=== PATIENT | female | born 1970 | race African-American/Black ===

== ENCOUNTER 2016-11-14 03:28 | Emergency (ER) | payer MEDICAID ==
[2016-11-14] MEDS ORDERED: IBUPROFEN 800 MG TABLET PO ONE (03:59)
[2016-11-14] MEDS ORDERED: DEXAMETHASONE SOD PHOSPHATE INJ 4 MG/1 ML VIAL IM ONE (03:59)
--- NOTE | 2016-11-14 04:10 | ER Document Report ---
HPI - HPI Patient complains to provider of: melecio pain Onset: Last week Onset/Duration: Persistent Severity: Severe Pain Level: 5 Context: Patient presents to the emergency department with complaints of right ankle pain , swelling. Patient reports that approximately one week ago she noted scattered knots to her bilateral lower legs. She also reports irritation to her bilateral forearms. She reports this started happening when she was using an Prim products. She reports she stopped using the product. She denies other symptoms such as fever vomiting diarrhea. She reports no other family member with these bumps. She reports they do not itch. Associated Symptoms: None Exacerbated by: Walking Relieved by: Denies Similar symptoms previously: No Recently seen / treated by doctor: No - REPRODUCTIVE Reproductive: DENIES: : Past Medical History - General Information source: Patient Last Menstrual Period: IUD - Social History Smoking Status: Unknown if Ever Smoked Cigarette use (# per day): No Frequency of alcohol use: None Drug Abuse: None Lives with: Family Family History: Reviewed & Not Pertinent - Past Medical History Cardiac Medical History: Reports: Hx Hypertension Pulmonary Medical History: Reports: Hx Asthma Neurological Medical History: Reports: Hx Migraine Musculoskeltal Medical History: Reports Hx Gout Psychiatric Medical History: Reports: Hx Depression Surgical Hx: Negative - Immunizations Immunizations up to date: Yes Hx Diphtheria, Pertussis, Tetanus Vaccination: Yes - 2004 [facility] Provider Document - CONSTITUTIONAL Agree With Documented VS: Yes Exam Limitations: No Limitations General Appearance: WD/WN, No Apparent Distress - INFECTION CONTROL TRAVEL OUTSIDE OF THE [place] IN LAST 30 DAYS: No - HEENT HEENT: Atraumatic, Normocephalic - NECK Neck: Normal Inspection, Supple. negative: Lymphadenopathy-Left, Lymphadenopathy-Right - RESPIRATORY O2 Sat by Pulse Oximetry: 100 - CARDIOVASCULAR Cardiovascular: Regular Rate - GI/ABDOMEN Gastrointestinal: Abdomen Soft, Abdomen Non-Tender - BACK Back: Normal Inspection - MUSCULOSKELETAL/EXTREMETIES Musculoskeletal/Extremeties: MAEW, FROM, Tender - RIGHT ANKLE laterally TTP with erythema to distal lateral right lower leg slightly warm to touch, good pedal pulse, good cap refill - NEURO Level of Consciousness: Awake, Alert, Appropriate Motor/Sensory: No Motor Deficit - DERM Integumentary: Warm, Dry Adult Front & Back Diagram: 1 - Bilateral erythemic scattered bumps to lower legs, no vesicles/pustules, no open wounds 2 - scattered flat darkend areas to bilateral forearms, no open wounds, no vesicles/pustules Course - Re-evaluation Re-evalutation: 11/14/16 Patient and instructed on negative x-ray plan of care to include Keflex and Benadryl. Patient was also prescribed Motrin for the pain. She verbalized understanding. She reports she'll follow-up with Dr. jhonny Luu this week. - Vital Signs Vital signs: Temp Pulse Resp BP Pulse Ox 97.9 F 76 18 144/94 H 100 11/14/16 03:40 11/14/16 03:40 11/14/16 03:40 11/14/16 03:40 11/14/16 03:40 - Diagnostic Test Radiology reviewed: Image reviewed, Reports reviewed Procedures - Immobilization Right Ankle Pre-Proc Neuro Vasc Exam: Normal Immobilizer type: Don wrap Performed by: RN Post-Proc Neuro Vasc Exam: Unchanged from pre-exam Alignment checked and good: Yes Discharge - Discharge Clinical Impression: Acute right ankle pain, scattered insect bites, elevated blood pressure Condition: Stable Disposition: HOME, SELF-CARE Instructions: Don Wrap ([facility]), Ice & Elevation ([facility]), Use of Crutches ([facility]), Cephalexin ([facility]), Use of Diphenhydramine, Steroid Medication Injection, Ibuprofen (General) ([facility]) Additional Instructions: *You have been treated for right ankle pain and swelling, multiple insect bites Monitor your blood pressure. Your blood pressure was elevated today. This may be because you were anxious, in pain or because you need medication. It is important to follow up with your primary care provider for full evaluation. *Take medication as prescribed *You have received this steroid injection *Take Benadryl as indicated *Rest ice elevate your ankle use the crutches and Don wrap for comfort the next 3 days *Monitor your skin for signs of increasing infection such as increasing pain, redness, swelling, warmth *Follow up with Dr Jhonny Luu this week *Return to ED for signs of increasing infection, worsening condition, changes, needs Prescriptions: Cephalexin Monohydrate [Keflex 500 mg Capsule] 500 mg PO QID #20 capsule Ibuprofen [Motrin 800 mg Tablet] 800 mg PO TID #30 tablet Forms: Elevated Blood Pressure Referrals: ARTEMIO LUU MD [Primary Care Provider] - Follow up in 3-5 days
[2016-11-14] MEDS ORDERED: CEPHALEXIN 500 MG CAPSULE PO ONE (05:16)
[2016-11-14] MEDS ORDERED: DIPHENHYDRAMINE HCL 25 MG CAPSULE PO ONE (05:16)
[2016-11-14 05:37] VITALS: BP 120/74
== END 2016-11-14 05:37 | disposition home or self-care (01) ==
LOC: ER 03:28
DX: T14.8 Other injury of unspecified body region (principal); M25.571 Pain in right ankle and joints of right foot; I10 Essential (primary) hypertension; W57.XXXA Bitten or stung by nonvenomous insect and other nonvenomous arthropods, initial encounter
CPT/HCPCS: 99283; 96372; 73610; J3490 ×2; J1100

== ENCOUNTER 2016-11-25 12:38 | Emergency (ER) | payer MEDICAID ==
--- NOTE | 2016-11-25 12:54 | ER Document Report ---
ED Medical Screen (RME) - General Stated Complaint: ANKLE PAIN/POSSIBLE BITE Time seen by provider: 12:48 Mode of Arrival: Ambulatory Information source: Patient Notes: 46-year-old female presents to ED for pain tin both feet and ankles for the last 2 weeks. She denies CHF. She does states she was told 3 years ago she had gout. States the swelling is getting worse. Spoke with Dr. Lama. Her treatment will be blood work urine chest x-ray and bilateral Dopplers. I have greeted and performed a rapid initial assessment of this patient. A comprehensive ED assessment and evaluation of the patient, analysis of test results and completion of medical decision making process will be conducted by an additional ED providers. TRAVEL OUTSIDE OF THE [place] IN LAST 30 DAYS: No - Related Data Allergies/Adverse Reactions: No Known Allergies Allergy (Verified 11/25/16 12:53) Past Medical History - Past Medical History Cardiac Medical History: Reports: Hx Hypertension Pulmonary Medical History: Reports: Hx Asthma Neurological Medical History: Reports: Hx Migraine Musculoskeltal Medical History: Reports Hx Gout Psychiatric Medical History: Reports: Hx Depression - Immunizations Immunizations up to date: Yes Hx Diphtheria, Pertussis, Tetanus Vaccination: Yes - 2003
[2016-11-25 13:25] LABS: ABSOLUTE EOSINOPHILS # (AUTO) 0.3 10^3/uL (0.0-0.6); ABSOLUTE LYMPHOCYTES (AUTO) 1.3 10^3/uL (0.5-4.7); ABSOLUTE MONOCYTES (AUTO) 0.5 10^3/uL (0.1-1.4); ABSOLUTE NEUT (AUTO) 6.6 10^3/uL (1.7-8.2); BASOPHILS % (AUTO) 0.4 % (0-2); EOSINOPHILS % (AUTO) 3.2 % (0-6); HEMATOCRIT 38.7 % (36.0-47.0); HEMOGLOBIN 12.7 g/dL (12.0-15.5); HGB HCT DIFFERENCE -0.6; LYMPHOCYTES % (AUTO) 15.3 % (13-45); MEAN CORPUSCULAR HEMOGLOBIN 27.1 pg (27.0-33.4); MEAN CORPUSCULAR HGB CONC 32.9 g/dL (32.0-36.0); MEAN CORPUSCULAR VOLUME 82 fl (80-97); RED CELL DISTRIBUTION WIDTH 13.8 % (11.5-14.0); SEGMENTED NEUTROPHILS % (AUTO) 75.1 % (42-78); WHITE BLOOD COUNT 8.8 10^3/uL (4.0-10.5)
[2016-11-25 13:29] LABS: APPEARANCE,URINE CLEAR; BILIRUBIN,URINE NEGATIVE (NEGATIVE); GLUCOSE, URINE NEGATIVE (NEGATIVE); KETONES,URINE NEGATIVE (NEGATIVE); LEUKOCYTE ESTERASE,URINE NEGATIVE (NEGATIVE); NITRITE,URINE NEGATIVE (NEGATIVE); PROTEIN,URINE NEGATIVE (NEGATIVE); URINE SPECIFIC GRAVITY 1.012; UROBILINOGEN,URINE NEGATIVE mg/dL (<2.0)
[2016-11-25 13:45] LABS: ALANINE AMINOTRANSFERASE 15 U/L (9-52); ALBUMIN 3.6 g/dL (3.5-5.0); ALKALINE PHOSPHATASE 72 U/L (38-126); ANION GAP 9 (5-19); ASPARTATE AMINO TRANSFERASE 18 U/L (14-36); BILIRUBIN,TOTAL 0.4 mg/dL (0.2-1.3); BLOOD UREA NITROGEN 13 mg/dL (7-20); CALCIUM 9.6 mg/dL (8.4-10.2); CARBON DIOXIDE 30 mmol/L (22-30); CHLORIDE 101 mmol/L (98-107); CREATININE RESULT 0.76 mg/dL (0.52-1.25); GLUCOSE 108 mg/dL (75-110); POTASSIUM 3.9 mmol/L (3.6-5.0); SODIUM 139.5 mmol/L (137-145); TOTAL PROTEIN 7.4 g/dL (6.3-8.2)
--- NOTE | 2016-11-25 16:03 | ER Document Report ---
ED General - General Chief Complaint: Foot Pain Stated Complaint: ANKLE PAIN/POSSIBLE BITE Mode of Arrival: Ambulatory TRAVEL OUTSIDE OF THE [place] IN LAST 30 DAYS: No - HPI Patient complains to provider of: bilateral ankle swelling Notes: Patient states bilateral ankle swelling ongoing for the last 3-4 days. Patient denies any acute injury. Patient states she does have a history gout but is unaware if this still similar to her gout attacks in the back. Patient has swelling bilateral ankles right greater than left. No injury. No fevers no chills no nausea no vomiting. - Related Data Allergies/Adverse Reactions: No Known Allergies Allergy (Verified 11/25/16 12:53) Past Medical History - General Information source: Patient - Social History Smoking Status: Never Smoker Chew tobacco use (# tins/day): No Frequency of alcohol use: None Drug Abuse: None Family History: Reviewed & Not Pertinent Patient has suicidal ideation: No Patient has homicidal ideation: No - Past Medical History Cardiac Medical History: Reports: Hx Hypertension Pulmonary Medical History: Reports: Hx Asthma Neurological Medical History: Reports: Hx Migraine Renal/ Medical History: Denies: Hx Peritoneal Dialysis Musculoskeltal Medical History: Reports Hx Gout Psychiatric Medical History: Reports: Hx Depression - Immunizations Immunizations up to date: Yes Hx Diphtheria, Pertussis, Tetanus Vaccination: Yes - 2003 Review of Systems - Review of Systems Constitutional: No symptoms reported EENT: No symptoms reported Cardiovascular: No symptoms reported Respiratory: No symptoms reported Gastrointestinal: No symptoms reported Genitourinary: No symptoms reported Female Genitourinary: No symptoms reported Musculoskeletal: Other - Bilateral ankle swelling Skin: No symptoms reported Hematologic/Lymphatic: No symptoms reported Neurological/Psychological: No symptoms reported -: Yes All other systems reviewed and negative Physical Exam - Vital signs Vitals: Temp Pulse Resp BP Pulse Ox 98.1 F 80 24 H 158/86 H 98 11/25/16 12:49 11/25/16 12:49 11/25/16 12:49 11/25/16 12:49 11/25/16 12:49 Interpretation: Normal - General General appearance: Appears well, Alert - HEENT Head: Normocephalic, Atraumatic Eyes: Normal Pupils: PERRL - Respiratory Respiratory status: No respiratory distress Chest status: Nontender Breath sounds: Normal Chest palpation: Normal - Cardiovascular Rhythm: Regular Heart sounds: Normal auscultation Murmur: No - Abdominal Inspection: Normal Distension: No distension Bowel sounds: Normal Tenderness: Nontender Organomegaly: No organomegaly - Back Back: Normal, Nontender - Extremities General upper extremity: Normal inspection, Nontender, Normal color, Normal ROM , Normal temperature General lower extremity: Normal inspection, Nontender, Edema - Bilateral ankle swelling 2+ edema right 1+ edema on the left. There is a mild erythema on the right malleolus minimal tenderness to palpation range of motion intact, Normal color, Normal ROM, Normal temperature, Normal weight bearing. No: Lisette's sign - Neurological Neuro grossly intact: Yes Cognition: Normal Orientation: AAOx4 Kristofer Coma Scale Eye Opening: Spontaneous [place] Coma Scale Verbal: Oriented [place] Coma Scale Motor: Obeys Commands [place] Coma Scale Total: 15 Speech: Normal Motor strength normal: LUE, RUE, LLE, RLE Sensory: Normal - Psychological Associated symptoms: Normal affect, Normal mood - Skin Skin Temperature: Warm Skin Moisture: Dry Skin Color: Normal Course - Re-evaluation Re-evalutation: 11/25/16 22:29 Dopplers negative for DVT. Labwork shows no critical etiology. Possible gout. Explained to the patient that she should elevate her legs might will start treating her with anti-inflammatories. Patient's follow-up with her primary care physician. Patient agrees with plan discharged home. - Vital Signs Vital signs: Temp Pulse Resp BP Pulse Ox 98.1 F 82 16 148/76 H 98 11/25/16 16:00 11/25/16 16:00 11/25/16 16:00 11/25/16 16:00 11/25/16 16:00 - Laboratory Result Diagrams: 11/25/16 13:05 11/25/16 13:05 Laboratory results interpreted by me: 11/25/16 13:05 Urine Blood SMALL H Discharge - Discharge Clinical Impression: Pain and swelling of right ankle, Dependent edema Condition: Good Disposition: HOME, SELF-CARE Instructions: Ice & Elevation ([facility]), Gout Diet ([facility]), Gout ([facility]), Dependent Edema ([facility]) Additional Instructions: Your lab work shows no critical etiology. Your venous Doppler was negative for DVT. Laboratories negative for any signs of CHF or heart failure. More likely the swelling and pain your ankles and legs are due to possible gout or just dependent edema which is just fluid pull down by gravity and resting in your legs. We will treat your possible gout with pain medication prescribed. We will need to treat the swelling with elevation at home you may also place ice on your ankles are on her legs. Please elevate your legs above the level of your heart while lying Flat at night. We will also prescribe you some compression stockings. I would highly recommend following up with your DrNancy in one week. Prescriptions: Compression Socks, Medium [Futuro Restoring] 1 each MC DAILY #1 each Naproxen [Naprosyn 250 mg Tablet] 250 mg PO DAILY PRN #10 tablet PRN Reason: Forms: Return to Work Referrals: XOCHILT KELLY, [Primary Care Provider] - Follow up as needed
[2016-11-25 16:27] VITALS: BP 148/76
== END 2016-11-25 16:10 | disposition home or self-care (01) ==
LOC: ER 12:38
DX: R60.0 Localized edema (principal); M79.89 Other specified soft tissue disorders; M79.673 Pain in unspecified foot
CPT/HCPCS: 36415; 71020; 80053; 81001; 85025; 93970; 99283

== ENCOUNTER 2017-01-31 07:36 | Emergency (ER) | payer MEDICAID ==
[2017-01-31] MEDS ORDERED: ASPIRIN 81 MG TABLET, CHEWABLE PO ONE (07:44)
--- NOTE | 2017-01-31 08:30 | ER Document Report ---
ED Cardiac - General Chief Complaint: Chest Pain Stated Complaint: CHEST PAIN Time seen by provider: 08:30 Mode of Arrival: Ambulatory Information source: Patient Notes: 46 yo non smoke, non etoh,non drugs, hypertensive non hyperlipedemic, non dm, ashtma, (no meds for 3 years), female woke up screaming , scared, to make sure she was alive, woke up with sharp anterior retrosternal left sided chest pain , lasted 10-15 minutes, at 0400, was at [employer] until 0200. Drove to hospital, fell asleep in the car, did not check into the ER until she woke up pain was gone. When walking into the ER the pain returned, same location, not as sharp, lasted 10-15 minutes. 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 PCP Artemio Helms fam hx-Mom [place] in 50's. Tried albuterol MDI at home which helped some. NO fever. Insp and exp. wheeze bilateral. Wheezing for a few days, she does get chest pain from asthma, but today she thinks it is her heart, not her lungs. Ran out of Dine in last week. Swelling in lower legs since december which is new. No cardiac work up in the past. No hx of dvt or pe. TRAVEL OUTSIDE OF THE [place] IN LAST 30 DAYS: No - Related Data Allergies/Adverse Reactions: No Known Allergies Allergy (Verified 01/31/17 07:50) Past Medical History - General Information source: Patient - Social History Smoking Status: Never Smoker Chew tobacco use (# tins/day): No Frequency of alcohol use: None Drug Abuse: None Occupation: self-employed Family History: Reviewed & Not Pertinent Patient has suicidal ideation: No Patient has homicidal ideation: No - Past Medical History Cardiac Medical History: Reports: Hx Hypertension Pulmonary Medical History: Reports: Hx Asthma Neurological Medical History: Reports: Hx Migraine Renal/ Medical History: Denies: Hx Peritoneal Dialysis Musculoskeltal Medical History: Reports Hx Gout Psychiatric Medical History: Reports: Hx Depression Surgical Hx: Negative - Immunizations Immunizations up to date: Yes Hx Diphtheria, Pertussis, Tetanus Vaccination: Yes - 2003 Review of Systems - Review of Systems Constitutional: No symptoms reported EENT: No symptoms reported Cardiovascular: See HPI Respiratory: See HPI Gastrointestinal: No symptoms reported Genitourinary: No symptoms reported Female Genitourinary: No symptoms reported Musculoskeletal: No symptoms reported Skin: No symptoms reported Hematologic/Lymphatic: No symptoms reported Neurological/Psychological: No symptoms reported Physical Exam - Vital signs Vitals: Temp Pulse Resp BP Pulse Ox 98.4 F 73 20 151/99 H 99 01/31/17 07:53 01/31/17 07:53 01/31/17 07:53 01/31/17 07:53 01/31/17 07:53 Interpretation: Normal - General General appearance: Appears well, Alert In distress: None - HEENT Head: Normocephalic, Atraumatic Eyes: Normal Conjunctiva: Normal Pupils: PERRL Tympanic membrane: Normal Mouth/Lips: Normal Mucous membranes: Normal Pharynx: Normal Neck: Supple. No: Lymphadenopathy, Thyromegally - Respiratory Respiratory status: No respiratory distress Chest status: Nontender Breath sounds: Wheezing - Inspiratory and expiratory bilateral. No: Rales, Rhonchi Chest palpation: Normal - Cardiovascular Rhythm: Regular Heart sounds: Normal auscultation Murmur: No - Abdominal Inspection: Normal Distension: No distension Bowel sounds: Normal Tenderness: Nontender. No: Tender Organomegaly: No organomegaly - Back Back: Normal, Nontender. No: CVA tenderness - Extremities General upper extremity: Normal inspection, Nontender, Normal color, Normal ROM , Normal temperature General lower extremity: Normal inspection, Nontender, Normal color, Normal ROM , Normal temperature, Normal weight bearing. No: Lisette's sign - Neurological Neuro grossly intact: Yes Cognition: Normal Orientation: AAOx4 Kristofer Coma Scale Eye Opening: Spontaneous [place] Coma Scale Verbal: Oriented Kristofer Coma Scale Motor: Obeys Commands [place] Coma Scale Total: 15 Speech: Normal Motor strength normal: LUE, RUE, LLE, RLE Sensory: Normal - Psychological Associated symptoms: Normal affect, Normal mood - Skin Skin Temperature: Warm Skin Moisture: Dry Skin Color: Normal Skin irregularity: negative: Rash Course - Re-evaluation Re-evalutation: 01/31/17 11:02 Lungs are clear. Patient states that the chest pain that she was feeling went away with a breathing treatment. Labs are negative. Test x-ray is negative. ekg NSR no ectopy of ischemic changes. consult dr. huitron, if the 2nd troponin is negative. pt can go home with cardiology referral 01/31/17 12:53 awoke pt. lungs clear. no chest pain. considered PE,CHF, ACS in differential and feel that this is asthma, as the pt admits after the tx that the pain resolved with the nebulizer, and that she also believes that this was due to the wheezing she has been doing all this week. - Vital Signs Vital signs: Temp Pulse Resp BP Pulse Ox 98.7 F 64 18 146/81 H 99 01/31/17 14:40 01/31/17 14:40 01/31/17 14:40 01/31/17 14:40 01/31/17 14:40 - Laboratory Result Diagrams: 01/31/17 08:45 01/31/17 08:45 Laboratory results interpreted by me: 01/31/17 01/31/17 08:45 08:45 Hgb 11.9 L MCH 26.2 L RDW 14.1 H Creatine Kinase 214 H Discharge - Discharge Clinical Impression: Wheezing Chest pain Qualifiers: Chest pain type: unspecified Qualified Code(s): R07.9 - Chest pain, unspecified Asthma Qualifiers: Asthma severity: mild intermittent Asthma complication type: uncomplicated Qualified Code(s): J45.20 - Mild intermittent asthma, uncomplicated Condition: Good Disposition: HOME, SELF-CARE Instructions: Chest Pain of Unclear Cause ([facility]), Asthma ([facility]), Steroid Medication, Inhaled Bronchodilators ([facility]), Aspirin (Cardiac) ([facility]) Additional Instructions: call for cardiology evaluation tomorrow. dr. john will see you this week to er if worse refill on the advair and albuterol MDI's that are empty. Please complete the patient satisfaction survey if you get one, and return it.. If you do not receive a survey, then you can go to the [facility] website, [email or web address] and place your comments about your very good care. Thank you very much. It was a pleasure being your medical provider today. Prescriptions: Albuterol Sulfate [Proair HFA Inhalation Aerosol 8.5 gm MDI] 2 puff IH Q3HP PRN #1 [email or web address] PRN Reason: Fluticasone/Salmeterol [Advair HFA 115-21 mcg Inhaler] 2 puff IH DAILY #1 mdi Prednisone [Deltasone 20 mg Tablet] 40 mg PO DAILY #8 tablet Referrals: LASHELL JOHN MD [ACTIVE STAFF] - Follow up tomorrow ARTEMIO HELMS MD [Primary Care Provider] - Follow up in 3-5 days
[2017-01-31] MEDS ORDERED: IPRATROPIUM/ALBUTEROL 0.5-2.5 MG/3 ML AMPUL NEB ONE (08:55)
[2017-01-31 09:23] LABS: ABSOLUTE EOSINOPHILS # (AUTO) 0.6 10^3/uL (0.0-0.6); ABSOLUTE LYMPHOCYTES (AUTO) 1.9 10^3/uL (0.5-4.7); ABSOLUTE MONOCYTES (AUTO) 0.7 10^3/uL (0.1-1.4); ABSOLUTE NEUT (AUTO) 6.2 10^3/uL (1.7-8.2); BASOPHILS % (AUTO) 0.4 % (0-2); EOSINOPHILS % (AUTO) 5.9 % (0-6); HEMATOCRIT 36.3 % (36.0-47.0); HEMOGLOBIN 11.9 g/dL (12.0-15.5); HGB HCT DIFFERENCE -0.6; LYMPHOCYTES % (AUTO) 20.6 % (13-45); MEAN CORPUSCULAR HEMOGLOBIN 26.2 pg (27.0-33.4); MEAN CORPUSCULAR HGB CONC 32.7 g/dL (32.0-36.0); MEAN CORPUSCULAR VOLUME 80 fl (80-97); MONOCYTES % (AUTO) 7.9 % (3-13); RED BLOOD COUNT 4.53 10^6/uL (3.72-5.28); RED CELL DISTRIBUTION WIDTH 14.1 % (11.5-14.0); SEGMENTED NEUTROPHILS % (AUTO) 65.2 % (42-78); WHITE BLOOD COUNT 9.4 10^3/uL (4.0-10.5)
--- NOTE | 2017-01-31 09:36 | EKG REPORT ---
SEVERITY:- ABNORMAL ECG - SINUS RHYTHM LEFT VENTRICULAR HYPERTROPHY : Confirmed by: Naila Gloria 31-Jan-2017 09:35:44
[2017-01-31 09:43] LABS: ALANINE AMINOTRANSFERASE 25 U/L (9-52); ALBUMIN 3.8 g/dL (3.5-5.0); ALKALINE PHOSPHATASE 79 U/L (38-126); ANION GAP 8 (5-19); ASPARTATE AMINO TRANSFERASE 20 U/L (14-36); BILIRUBIN,DIRECT 0.2 mg/dL (0.0-0.4); BILIRUBIN,TOTAL 0.3 mg/dL (0.2-1.3); BLOOD UREA NITROGEN 14 mg/dL (7-20); CALCIUM 9.5 mg/dL (8.4-10.2); CARBON DIOXIDE 29 mmol/L (22-30); CHLORIDE 104 mmol/L (98-107); CREATINE KINASE 214 U/L (30-135); CREATININE RESULT 0.74 mg/dL (0.52-1.25); GLUCOSE 96 mg/dL (75-110); POTASSIUM 3.8 mmol/L (3.6-5.0); SODIUM 141.1 mmol/L (137-145); TOTAL PROTEIN 7.6 g/dL (6.3-8.2)
[2017-01-31 09:54] LABS: CREATINE KINASE MB 0.82 ng/mL (<4.55)
[2017-01-31 09:55] LABS: TROPONIN I < 0.012 ng/mL
[2017-01-31] MEDS ORDERED: PREDNISONE 20 MG TABLET PO ONE (12:56)
[2017-01-31 14:43] VITALS: BP 146/81
== END 2017-01-31 14:43 | disposition home or self-care (01) ==
LOC: ER 07:36
DX: J45.20 Mild intermittent asthma, uncomplicated (principal); R07.9 Chest pain, unspecified; R06.2 Wheezing; M79.89 Other specified soft tissue disorders
CPT/HCPCS: 93005; 94640; 99285; 36415; 82553; 82550; 85025; 80053; 84484; 83880; 71010; 93010; J7620

== ENCOUNTER 2017-10-01 04:14 | Emergency (ER) | payer MEDICAID ==
--- NOTE | 2017-10-01 04:41 | ER Document Report ---
ED GI/ - General Chief Complaint: Abdominal Pain Stated Complaint: ABDOMINAL PAIN Time Seen by Provider: 10/01/17 04:41 Mode of Arrival: Ambulatory Information source: Patient Notes: 47-year-old female complaining of upper midline crampy intermittent abdominal pain since she ate turkey and gravy at 7 PM. She thinks she might have food poisoning. Normal bowel movement today. No diarrhea. No fever or chills. No flank pain. No urinary frequency dysuria or urgency. No history of abdominal surgeries. TRAVEL OUTSIDE OF THE [place] IN LAST 30 DAYS: No - Related Data Allergies/Adverse Reactions: No Known Allergies Allergy (Verified 01/31/17 07:50) Past Medical History - General Information source: Patient - Social History Smoking Status: Current Every Day Smoker Frequency of alcohol use: None Drug Abuse: None Lives with: Family Family History: Reviewed & Not Pertinent - Past Medical History Cardiac Medical History: Reports: Hx Hypertension Pulmonary Medical History: Reports: Hx Asthma Neurological Medical History: Reports: Hx Migraine Renal/ Medical History: Denies: Hx Peritoneal Dialysis Musculoskeltal Medical History: Reports Hx Gout Psychiatric Medical History: Reports: Hx Depression Surgical Hx: Negative - Immunizations Immunizations up to date: Yes Hx Diphtheria, Pertussis, Tetanus Vaccination: Yes - 2003 Review of Systems - Review of Systems Constitutional: No symptoms reported EENT: No symptoms reported Cardiovascular: No symptoms reported Respiratory: No symptoms reported Gastrointestinal: See HPI Genitourinary: No symptoms reported Female Genitourinary: No symptoms reported Musculoskeletal: No symptoms reported Skin: No symptoms reported Hematologic/Lymphatic: No symptoms reported Neurological/Psychological: No symptoms reported Physical Exam - Vital signs Vitals: Temp Pulse Resp BP Pulse Ox 98.1 F 77 18 158/92 H 98 10/01/17 04:23 10/01/17 04:23 10/01/17 04:23 10/01/17 04:23 10/01/17 04:23 Interpretation: Normal - General General appearance: Appears well, Alert, Unresponsive - HEENT Head: Normocephalic, Atraumatic Eyes: Normal Pupils: PERRL Mucous membranes: Normal Pharynx: Normal Neck: Supple. No: Lymphadenopathy - Respiratory Respiratory status: No respiratory distress Chest status: Nontender Breath sounds: Normal Chest palpation: Normal - Cardiovascular Rhythm: Regular Heart sounds: Normal auscultation Murmur: No - Abdominal Inspection: Normal Distension: No distension Bowel sounds: Normal Tenderness: Nontender. No: Tender Organomegaly: No organomegaly. No: Hepatomegaly, Splenomegaly - Back Back: Normal, Nontender. No: CVA tenderness - Extremities General upper extremity: Normal inspection, Nontender, Normal color, Normal ROM , Normal temperature General lower extremity: Normal inspection, Nontender, Normal color, Normal ROM , Normal temperature, Normal weight bearing. No: Lisette's sign - Neurological Neuro grossly intact: Yes Cognition: Normal Orientation: AAOx4 Kristofer Coma Scale Eye Opening: Spontaneous [place] Coma Scale Verbal: Oriented Kristofer Coma Scale Motor: Obeys Commands [place] Coma Scale Total: 15 Speech: Normal Motor strength normal: LUE, RUE, LLE, RLE Sensory: Normal - Psychological Associated symptoms: Normal affect, Normal mood - Skin Skin Temperature: Warm Skin Moisture: Dry Skin Color: Normal Skin irregularity: negative: Rash Course - Re-evaluation Re-evalutation: 10/01/17 05:31 labs normal, pt was asleep, awoken and explained that we will treat her with GI cocktail and prevacid, will be discharged home. 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 If you do not receive a survey, then you can go to the [facility] website, [email or web address] and place your comments about your very good care. Thank you very much. It was a pleasure being your medical provider today. Referrals: DENI PONCE MD [ACTIVE STAFF] - Follow up as needed
[2017-10-01 04:55] LABS: ABSOLUTE BASOPHILS # (AUTO) 0.1 10^3/uL (0.0-0.2); ABSOLUTE EOSINOPHILS # (AUTO) 0.3 10^3/uL (0.0-0.6); ABSOLUTE LYMPHOCYTES (AUTO) 1.4 10^3/uL (0.5-4.7); ABSOLUTE MONOCYTES (AUTO) 0.4 10^3/uL (0.1-1.4); ABSOLUTE NEUT (AUTO) 8.2 10^3/uL (1.7-8.2); BASOPHILS % (AUTO) 0.7 % (0-2); EOSINOPHILS % (AUTO) 2.8 % (0-6); HEMATOCRIT 42.1 % (36.0-47.0); HEMOGLOBIN 14.3 g/dL (12.0-15.5); HGB HCT DIFFERENCE 0.8; LYMPHOCYTES % (AUTO) 13.9 % (13-45); MEAN CORPUSCULAR HEMOGLOBIN 27.7 pg (27.0-33.4); MEAN CORPUSCULAR HGB CONC 34.1 g/dL (32.0-36.0); MEAN CORPUSCULAR VOLUME 81 fl (80-97); MONOCYTES % (AUTO) 4.1 % (3-13); RED BLOOD COUNT 5.17 10^6/uL (3.72-5.28); RED CELL DISTRIBUTION WIDTH 13.7 % (11.5-14.0); SEGMENTED NEUTROPHILS % (AUTO) 78.5 % (42-78); WHITE BLOOD COUNT 10.4 10^3/uL (4.0-10.5)
[2017-10-01 05:08] LABS: APPEARANCE,URINE CLEAR; BILIRUBIN,URINE NEGATIVE (NEGATIVE); GLUCOSE, URINE NEGATIVE (NEGATIVE); KETONES,URINE NEGATIVE (NEGATIVE); LEUKOCYTE ESTERASE,URINE TRACE (NEGATIVE); NITRITE,URINE NEGATIVE (NEGATIVE); PROTEIN,URINE NEGATIVE (NEGATIVE); UROBILINOGEN,URINE NEGATIVE mg/dL (<2.0)
[2017-10-01 05:13] LABS: ALANINE AMINOTRANSFERASE 30 U/L (9-52); ALBUMIN 4.4 g/dL (3.5-5.0); ALKALINE PHOSPHATASE 75 U/L (38-126); ANION GAP 13 (5-19); ASPARTATE AMINO TRANSFERASE 20 U/L (14-36); BILIRUBIN,DIRECT 0.2 mg/dL (0.0-0.4); BILIRUBIN,TOTAL 0.3 mg/dL (0.2-1.3); BLOOD UREA NITROGEN 11 mg/dL (7-20); CALCIUM 9.5 mg/dL (8.4-10.2); CARBON DIOXIDE 26 mmol/L (22-30); CHLORIDE 102 mmol/L (98-107); GLUCOSE 103 mg/dL (75-110); LIPASE 72.5 U/L (23-300); SODIUM 141.2 mmol/L (137-145); TOTAL PROTEIN 7.8 g/dL (6.3-8.2)
[2017-10-01] MEDS ORDERED: LANSOPRAZOLE 30 MG TAB.RAP.DR PO ONE (05:27)
[2017-10-01] MEDS ORDERED: LIDOCAINE 2% VISCOUS SOLN 20 ML UDCUP PO ONE (05:27)
[2017-10-01] MEDS ORDERED: MAG HYDROX/AL HYDROX/SIMETH SUSP 30 ML UDCUP PO ONE (05:27)
[2017-10-01 06:36] VITALS: BP 142/78
== END 2017-10-01 06:40 | disposition home or self-care (01) ==
LOC: ER 04:14
DX: R10.10 Upper abdominal pain, unspecified (principal); F17.200 Nicotine dependence, unspecified, uncomplicated; I10 Essential (primary) hypertension
CPT/HCPCS: 36415; 80053; 81001; 83690; 84703; 85025; 99284; J3490

== ENCOUNTER 2017-10-29 07:41 | Emergency (ER) | payer MEDICAID ==
[2017-10-29 07:47] VITALS: BP 151/86
--- NOTE | 2017-10-29 09:53 | ER Document Report ---
HPI - HPI Patient complains to provider of: cough, wheeze Onset: Yesterday Onset/Duration: Gradual Pain Level: 3 Context: 47 yo female with hx asthma c/o slight wheeze and cough since yesterday; No fever or chest pain. Associated Symptoms: None Exacerbated by: Denies Relieved by: Denies Similar symptoms previously: Yes Recently seen / treated by doctor: No - ROS ROS below otherwise negative: Yes Systems Reviewed and Negative: Yes All other systems reviewed and negative - RESPIRATORY Respiratory: REPORTS: Trouble Breathing - no sob today, Coughing - md not called in advair script - REPRODUCTIVE Reproductive: DENIES: : Past Medical History - General Information source: Patient - Social History Smoking Status: Never Smoker Chew tobacco use (# tins/day): No Frequency of alcohol use: None Drug Abuse: None Lives with: Family Family History: Reviewed & Not Pertinent Patient has suicidal ideation: No Patient has homicidal ideation: No - Past Medical History Cardiac Medical History: Reports: Hx Hypertension Pulmonary Medical History: Reports: Hx Asthma Neurological Medical History: Reports: Hx Migraine Renal/ Medical History: Denies: Hx Peritoneal Dialysis Musculoskeltal Medical History: Reports Hx Gout Psychiatric Medical History: Reports: Hx Depression - Immunizations Immunizations up to date: Yes Hx Diphtheria, Pertussis, Tetanus Vaccination: Yes - 2003 Vertical Provider Document - CONSTITUTIONAL Agree With Documented VS: Yes Exam Limitations: No Limitations General Appearance: No Apparent Distress - INFECTION CONTROL TRAVEL OUTSIDE OF THE [place] IN LAST 30 DAYS: No - HEENT HEENT: Normocephalic, Pharyngeal Erythema. negative: Conjuctival Injection, Tympanic Membrane Red - NECK Neck: Supple. negative: Lymphadenopathy-Left, Lymphadenopathy-Right - RESPIRATORY Respiratory: Breath Sounds Normal, No Respiratory Distress O2 Sat by Pulse Oximetry: 96 - CARDIOVASCULAR Cardiovascular: Regular Rate, Regular Rhythm - GI/ABDOMEN Gastrointestinal: Abdomen Soft, Abdomen Non-Tender, No Organomegaly, Normal Bowel Sounds - MUSCULOSKELETAL/EXTREMETIES Musculoskeletal/Extremeties: ABDELRAHMAN FONTAINE - NEURO Level of Consciousness: Awake, Alert, Appropriate Motor/Sensory: No Motor Deficit, No Sensory Deficit - DERM Integumentary: Warm, Dry Course - Vital Signs Vital signs: Temp Pulse Resp BP Pulse Ox 98.3 F 81 20 151/86 H 96 10/29/17 07:46 10/29/17 07:46 10/29/17 07:46 10/29/17 07:46 10/29/17 07:46 Discharge - Discharge Clinical Impression: mild wheezing Asthma Qualifiers: Asthma severity: unspecified severity Asthma persistence: persistent Asthma complication type: uncomplicated Qualified Code(s): J45.909 - Unspecified asthma , uncomplicated Condition: Good Disposition: HOME, SELF-CARE Instructions: Asthma ([facility]), Inhaled Bronchodilators ([facility]), Steroid Medication Additional Instructions: advair and albuterol MDI prescribed start today to er if any shortness of breath, increased wheezing, fever. see dr. helms for follow up Prescriptions: Albuterol Sulfate [Proair HFA Inhalation Aerosol 8.5 gm MDI] 2 puff IH Q3HP PRN #1 hfa.aer.ad PRN Reason: Fluticasone/Salmeterol [Advair 250-50 Diskus 28 dose] 1 inh IH DAILY #1 inhaler Referrals: ARTEMIO HELMS MD [Primary Care Provider] - 10/31/17
[2017-10-29] MEDS ORDERED: IPRATROPIUM/ALBUTEROL 0.5-2.5 MG/3 ML AMPUL NEB ONE (09:59)
[2017-10-29] MEDS ORDERED: PREDNISONE 20 MG TABLET PO ONE (10:00)
== END 2017-10-29 10:28 | disposition home or self-care (01) ==
LOC: ER 07:41
DX: J45.909 Unspecified asthma, uncomplicated (principal); R05 Cough
CPT/HCPCS: 94640; 99284; J7512; J7620

== ENCOUNTER 2018-02-13 17:45 | Emergency (ER) | payer MEDICAID ==
[2018-02-13] MEDS ORDERED: IPRATROPIUM/ALBUTEROL 0.5-2.5 MG/3 ML AMPUL NEB ONE ×2 (18:29→19:43)
[2018-02-13] MEDS ORDERED: PREDNISONE 20 MG TABLET PO ONE (18:50)
--- NOTE | 2018-02-13 19:37 | RADIOLOGY REPORT (SQ) ---
EXAM DESCRIPTION: CHEST 2 VIEWS COMPLETED DATE/TIME: 02/13/2018 7:16 pm REASON FOR STUDY: sob COMPARISON: 11/25/2016. EXAM PARAMETERS: NUMBER OF VIEWS: two views TECHNIQUE: Digital Frontal and Lateral radiographic views of the chest acquired. RADIATION DOSE: NA LIMITATIONS: none FINDINGS: LUNGS AND PLEURA: No opacities, masses or pneumothorax. No pleural effusion. MEDIASTINUM AND HILAR STRUCTURES: No masses or contour abnormalities. HEART AND VASCULAR STRUCTURES: Heart normal size. No evidence for failure. BONES: No acute findings. HARDWARE: None in the chest. OTHER: No other significant finding. IMPRESSION: NO ACUTE RADIOGRAPHIC FINDING IN THE CHEST. TECHNICAL DOCUMENTATION: JOB ID: [id number] [employer]- All Rights Reserved Reading location - IP/workstation name: [email or web address]
[2018-02-13] MEDS ORDERED: ALBUTEROL SULFATE HFA (90 MCG/PUFF) 8 GM MDI (1 MDI/ER DISP) IH ONE (20:18)
--- NOTE | 2018-02-13 20:21 | ER Document Report ---
ED General - General Chief Complaint: Shortness Of Breath Stated Complaint: WHEEZING Time Seen by Provider: 02/13/18 18:27 TRAVEL OUTSIDE OF THE [place] IN LAST 30 DAYS: No - HPI Patient complains to provider of: Wheezing Notes: Patient coming in for wheezing shortness of breath. States ongoing for the last few days. Patient is a history of asthma. Patient denies any ICU admissions or intubations. Patient denies any recent antibiotics patient states she is using her child's inhaler and her child's nebulizer at home. Otherwise patient talking in normal voice no signs of any obvious distress upon my evaluation. Denies fever chills nausea vomiting diarrhea - Related Data Allergies/Adverse Reactions: No Known Allergies Allergy (Verified 02/13/18 17:47) Past Medical History - Social History Smoking Status: Never Smoker Chew tobacco use (# tins/day): No Frequency of alcohol use: None Drug Abuse: None Family History: Reviewed & Not Pertinent Patient has suicidal ideation: No Patient has homicidal ideation: No - Past Medical History Cardiac Medical History: Reports: Hx Hypertension Pulmonary Medical History: Reports: Hx Asthma Neurological Medical History: Reports: Hx Migraine Renal/ Medical History: Denies: Hx Peritoneal Dialysis Musculoskeltal Medical History: Reports Hx Gout Psychiatric Medical History: Reports: Hx Depression - Immunizations Immunizations up to date: Yes Hx Diphtheria, Pertussis, Tetanus Vaccination: Yes - 2003 Review of Systems - Review of Systems Constitutional: No symptoms reported EENT: No symptoms reported Cardiovascular: No symptoms reported Respiratory: Short of breath, Wheezing Gastrointestinal: No symptoms reported Genitourinary: No symptoms reported Female Genitourinary: No symptoms reported Musculoskeletal: No symptoms reported Skin: No symptoms reported Hematologic/Lymphatic: No symptoms reported Neurological/Psychological: No symptoms reported -: Yes All other systems reviewed and negative Physical Exam - Vital signs Vitals: Temp Pulse Resp BP Pulse Ox 98.1 F 87 20 158/96 H 98 02/13/18 17:50 02/13/18 17:50 02/13/18 17:50 02/13/18 17:50 02/13/18 17:50 Interpretation: Normal - General General appearance: Appears well, Alert - HEENT Head: Normocephalic, Atraumatic Eyes: Normal Pupils: PERRL - Respiratory Respiratory status: No respiratory distress Chest status: Nontender Breath sounds: Wheezing Chest palpation: Normal - Cardiovascular Rhythm: Regular Heart sounds: Normal auscultation Murmur: No - Abdominal Inspection: Normal Distension: No distension Bowel sounds: Normal Tenderness: Nontender Organomegaly: No organomegaly - Back Back: Normal, Nontender - Extremities General upper extremity: Normal inspection, Nontender, Normal color, Normal ROM , Normal temperature General lower extremity: Normal inspection, Nontender, Normal color, Normal ROM , Normal temperature, Normal weight bearing. No: Lisette's sign - Neurological Neuro grossly intact: Yes Cognition: Normal Orientation: AAOx4 Kristofer Coma Scale Eye Opening: Spontaneous [place] Coma Scale Verbal: Oriented Kristofer Coma Scale Motor: Obeys Commands [place] Coma Scale Total: 15 Speech: Normal Motor strength normal: LUE, RUE, LLE, RLE Sensory: Normal - Psychological Associated symptoms: Normal affect, Normal mood - Skin Skin Temperature: Warm Skin Moisture: Dry Skin Color: Normal Course - Re-evaluation Re-evalutation: 02/13/18 22:54 After nebulized treatment patient found sleeping no signs of any distress chest x-ray does not show any signs of pneumonia. Patient will be discharged home bronchodilator therapy and steroids. Patient states understanding to follow-up with her PCP - Vital Signs Vital signs: Temp Pulse Resp BP Pulse Ox 98.1 F 81 19 141/81 H 100 02/13/18 17:50 02/13/18 20:44 02/13/18 20:44 02/13/18 20:44 02/13/18 20:44 Discharge - Discharge Clinical Impression: Wheezing Condition: Good Disposition: HOME, SELF-CARE Instructions: Asthma ([facility]) Additional Instructions: Your chest x-ray is negative for any signs of acute infection such as pneumonia. Do believe you have a slight asthma exacerbation. Please use the inhaler or the nebulizers as directed. Please take his steroids as directed return to ER symptoms worsen. Prescriptions: Albuterol Sulfate [Albuterol Sulfate 2.5mg/3 mL] 1 vial IH Q4 PRN #30 vial PRN Reason: Fluticasone/Salmeterol [Advair 250-50 Diskus 28 dose] 1 inh IH DAILY #1 inhaler Ipratropium [place] [Atrovent 0.02% Neb 0.5 Mg/2.5 Ml Vial.Neb] 0.5 mg IH Q12 # 30 vial.neb Prednisone [Deltasone 20 mg Tablet] 60 mg PO DAILY #15 tablet Referrals: ARTEMIO HELMS MD [Primary Care Provider] - Follow up as needed
[2018-02-13 20:46] VITALS: BP 141/81
== END 2018-02-13 20:44 | disposition home or self-care (01) ==
LOC: ER 17:45
DX: R06.2 Wheezing (principal); R06.02 Shortness of breath; I10 Essential (primary) hypertension
CPT/HCPCS: 94640 ×2; 99285; 71046; J7512; J3490; J7620

== ENCOUNTER 2018-04-16 04:55 | Emergency (ER) | payer MEDICAID ==
[2018-04-16] MEDS ORDERED: DIPH/PERTUSS(ACELL)/TETANUS VAC/PF 0.5 ML SYR (>=10YO) IM ONE (04:57)
--- NOTE | 2018-04-16 06:29 | ER Document Report ---
ED Extremity Problem, Lower - General Mode of Arrival: Ambulatory Information source: Patient TRAVEL OUTSIDE OF THE [place] IN LAST 30 DAYS: No - General Chief Complaint: Foot Pain Stated Complaint: FOOT INJURY Time Seen by Provider: 04/16/18 06:04 Notes: Patient is a 47 year old female with asthma, HTN, depression and a history of gout and migraines presents to the emergency department complaining of right heel pain onset 2 days ago. Patient states she was in her back yard when she stepped on a ita nail. Patient states her pain is exacerbated with walking on the right foot. Patient states her last tetanus shot was in 2003. Patient is currently on her menstrual cycle and has a 10 year IUD. (LASHAWN AGUDELO) - Related Data Allergies/Adverse Reactions: No Known Allergies Allergy (Verified 04/16/18 04:56) Past Medical History - General Information source: Patient - Social History Smoking Status: Never Smoker Frequency of alcohol use: None Family History: Reviewed & Not Pertinent Patient has suicidal ideation: No Patient has homicidal ideation: No - Past Medical History Cardiac Medical History: Reports: Hx Hypertension Pulmonary Medical History: Reports: Hx Asthma Neurological Medical History: Reports: Hx Migraine Musculoskeltal Medical History: Reports Hx Gout Psychiatric Medical History: Reports: Hx Depression - Immunizations Immunizations up to date: Yes Hx Diphtheria, Pertussis, Tetanus Vaccination: Yes - 2003 Review of Systems - Review of Systems Constitutional: No symptoms reported EENT: No symptoms reported Cardiovascular: No symptoms reported Respiratory: No symptoms reported Gastrointestinal: No symptoms reported Genitourinary: No symptoms reported Female Genitourinary: No symptoms reported Musculoskeletal: See HPI Skin: See HPI Hematologic/Lymphatic: No symptoms reported Neurological/Psychological: No symptoms reported -: Yes All other systems reviewed and negative Physical Exam - General General appearance: Appears well, Alert In distress: None - HEENT Head: Normocephalic, Atraumatic Eyes: Normal Conjunctiva: Normal Extraocular movements intact: Yes Pupils: PERRL Neck: Normal - Respiratory Respiratory status: No respiratory distress - Extremities General upper extremity: Normal ROM General lower extremity: Normal ROM Foot: Puncture wound - Small puncture wound located at the heel of the right foot which is tender to palpaiton. Small amount of erythema. No signs of infection. - Neurological Neuro grossly intact: Yes Cognition: Normal Orientation: AAOx4 Kristofer Coma Scale Eye Opening: Spontaneous [place] Coma Scale Verbal: Oriented [place] Coma Scale Motor: Obeys Commands [place] Coma Scale Total: 15 Speech: Normal - Psychological Associated symptoms: Normal affect, Normal mood - Skin Skin Temperature: Warm Skin Moisture: Dry Skin Color: Normal - Vital signs Vitals: Temp Pulse Resp BP Pulse Ox 98.0 F 80 18 174/100 H 98 04/16/18 05:00 04/16/18 05:00 04/16/18 05:00 04/16/18 05:00 04/16/18 05:00 Course - Re-evaluation Re-evalutation: 04/16/18 07:50 PROCEEDURE: The right heel skin was prepped with Shur-Clens. The puncture wound was anesthetized with 2 mL's of 1% lidocaine. The puncture area was cored out using a #11 blade. A few pieces of a black debris was found deep in the dermis and below the dermis when the wound was cored out and explored with the mosquito. Subcutaneous fat was removed using mosquito. A 14-gauge Angiocath was used to irrigate the tract of the puncture wound using a total of 10 mL's of normal saline. The tract went down about 1.5 cm. Wound was packed with a short piece of 1/4 inch iodoform gauze. A sterile dressing was applied. 04/16/18 08:01 Patient's blood pressure was elevated when she checked in. She is known to have hypertension and takes medication for this. We will recheck her blood pressure tomorrow afternoon when she comes back for reevaluation. (DANIS BRENNAN) - Vital Signs Vital signs: Temp Pulse Resp BP Pulse Ox 97.8 F 82 18 167/105 H 94 04/16/18 08:25 04/16/18 08:25 04/16/18 08:25 04/16/18 08:25 04/16/18 08:25 Discharge - Discharge Clinical Impression: Puncture wound with foreign body Puncture wound of plantar aspect of right foot with infection Qualifiers: Encounter type: initial encounter Qualified Code(s): S91.331A - Puncture wound without foreign body, right foot, initial encounter High blood pressure Qualifiers: Hypertension type: essential hypertension Qualified Code(s): I10 - Essential ( primary) hypertension Condition: Stable Disposition: HOME, SELF-CARE Additional Instructions: Puncture Wound: You have a puncture wound. Because these wounds often penetrate deeply beneath the skin, you must observe them carefully for complications. The wound has been examined for retained foreign material and for damage to tendons and nerves. The area should be rested and elevated for 24 hours. Then you can use the injured part -- if moving it is painfree. Punctures of the hand or foot may require splinting or crutches. The dressing should be changed daily until the wound is healed. Watch for signs of infection. Call the doctor immediately if redness, swelling, warmth, increasing pain, or wound drainage occur. If you develop numbness, persistent bleeding, or inability to move the injured area, please return for prompt re-evaluation. Take the medications as prescribed. Elevate your foot above your heart as much as possible. Return tomorrow afternoon for recheck of the wound and removal of the gauze packing. RETURN TO THE EMERGENCY ROOM IF ANY NEW OR WORSENING SYMPTOMS. Prescriptions: Cephalexin Monohydrate [Keflex 500 mg Capsule] 500 mg PO QID #28 capsule Ciprofloxacin HCl [Cipro 500 mg Tablet] 500 mg PO BID #14 tablet Oxycodone HCl/Acetaminophen [Percocet 5-325 mg Tablet] 1 tab PO ASDIR PRN #15 tablet PRN Reason: Referrals: ARTEMIO HELMS MD [Primary Care Provider] - Follow up as needed Scribe Attestation: 04/16/18 07:58 I personally performed the services described in the documentation, reviewed and edited the documentation which was dictated to the scribe in my presence, and it accurately records my words and actions. (DANIS BRENNAN) Scribe Documentation - Scribe Written by Andriaibe:: Danuta Becerra, 04/16/2018 06:42 acting as scribe for :: Kelechi
[2018-04-16] MEDS ORDERED: CIPROFLOXACIN HCL 750 MG TABLET PO ONE (06:32)
[2018-04-16] MEDS ORDERED: CEPHALEXIN 500 MG CAPSULE PO ONE (06:32)
[2018-04-16] MEDS ORDERED: LIDOCAINE 1% INJ-PF (10 MG/ML) 30 ML SDV INJ ONE (06:33)
[2018-04-16] MEDS ORDERED: OXYCODONE-ACETAMINOPHEN 5-325 MG TABLET PO ONE (06:33)
[2018-04-16] MEDS ORDERED: IBUPROFEN 800 MG TABLET PO ONE (07:00)
--- NOTE | 2018-04-16 07:35 | RADIOLOGY REPORT (SQ) ---
EXAM DESCRIPTION: XR FOOT 3 OR MORE VIEWS CLINICAL HISTORY: 47 years Female, nail puncture to the heel COMPARISON: None. Findings: Small swelling. Minimal plantar fascial enthesophyte. No radiopaque foreign body. Bones, joints, and soft tissues of the XR RIGHT FOOT 3 VIEWS appear otherwise intact. IMPRESSION: Swelling.
[2018-04-16 08:32] VITALS: BP 167/105
== END 2018-04-16 08:30 | disposition home or self-care (01) ==
LOC: ER 04:55
PROC: 0JBQ0ZZ Excision of Right Foot Subcutaneous Tissue and Fascia, Open Approach (ICD-10-PCS; principal; 2018-04-16)
DX: S91.331A Puncture wound without foreign body, right foot, initial encounter (principal); M79.671 Pain in right foot; W45.0XXA Nail entering through skin, initial encounter; I10 Essential (primary) hypertension; J45.909 Unspecified asthma, uncomplicated; Z79.899 Other long term (current) drug therapy
CPT/HCPCS: 99283; 90471; 73630; 90715; 11042; A6266; J3490 ×3

== ENCOUNTER 2018-04-18 10:31 | Emergency (ER) | payer MEDICAID ==
[2018-04-18 11:05] VITALS: BP 129/87
--- NOTE | 2018-04-18 11:19 | ER Document Report ---
ED Suture/Wound Recheck - General Chief Complaint: Wound Recheck Stated Complaint: FOOT ISSUE Time Seen by Provider: 04/18/18 11:05 Mode of Arrival: Ambulatory Information source: Patient Notes: 37-year-old female presents to ED for recheck on a right foot packing. She needs the packing removed and the wound we have checked. TRAVEL OUTSIDE OF THE [place] IN LAST 30 DAYS: No - HPI Previous ED treatment: I&D of abscess Quality of pain: Achy Pain Level: 2 Context: Other Symptoms since procedure: Pain Exacerbated by: Movement - Ce nail Relieved by: Denies - Related Data Allergies/Adverse Reactions: No Known Allergies Allergy (Verified 04/18/18 10:39) Past Medical History - General Information source: Patient - Social History Smoking Status: Never Smoker Cigarette use (# per day): No Chew tobacco use (# tins/day): No Smoking Education Provided: No Frequency of alcohol use: None Lives with: Family Family History: Reviewed & Not Pertinent Patient has suicidal ideation: No Patient has homicidal ideation: No - Past Medical History Cardiac Medical History: Reports: Hx Hypertension Pulmonary Medical History: Reports: Hx Asthma EENT Medical History: Reports: None Neurological Medical History: Reports: Hx Migraine Endocrine Medical History: Reports: None Renal/ Medical History: Reports: None Malignancy Medical History: Reports: None GI Medical History: Reports: None Musculoskeltal Medical History: Reports Hx Gout Skin Medical History: Reports None Psychiatric Medical History: Reports: Hx Depression Traumatic Medical History: Reports: None Infectious Medical History: Reports: None Surgical Hx: Negative Past Surgical History: Reports: None - Immunizations Immunizations up to date: Yes Hx Diphtheria, Pertussis, Tetanus Vaccination: Yes - 2003 Review of Systems - Review of Systems Constitutional: No symptoms reported EENT: No symptoms reported Cardiovascular: No symptoms reported Respiratory: No symptoms reported Gastrointestinal: No symptoms reported Genitourinary: No symptoms reported Female Genitourinary: No symptoms reported Musculoskeletal: No symptoms reported Skin: Other - Recheck on I&D to right foot from nail puncture wound packing was removed by me Hematologic/Lymphatic: No symptoms reported Neurological/Psychological: No symptoms reported Physical Exam - Vital signs Vitals: Temp Pulse Resp BP Pulse Ox 98.1 F 73 20 129/87 H 95 04/18/18 10:50 04/18/18 10:50 04/18/18 10:50 04/18/18 10:50 04/18/18 10:50 Interpretation: Normal - General General appearance: Appears well, Alert - HEENT Head: Normocephalic, Atraumatic Eyes: Normal Pupils: PERRL - Respiratory Respiratory status: No respiratory distress Chest status: Nontender Breath sounds: Normal Chest palpation: Normal - Cardiovascular Rhythm: Regular Heart sounds: Normal auscultation Murmur: No - Abdominal Inspection: Normal Distension: No distension Bowel sounds: Normal Tenderness: Nontender Organomegaly: No organomegaly - Back Back: Normal, Nontender - Extremities General upper extremity: Normal inspection, Nontender, Normal color, Normal ROM , Normal temperature General lower extremity: Normal inspection, Nontender, Normal color, Normal ROM , Normal temperature, Normal weight bearing. No: Lisette's sign - Neurological Neuro grossly intact: Yes Cognition: Normal Orientation: AAOx4 Kristofer Coma Scale Eye Opening: Spontaneous [place] Coma Scale Verbal: Oriented Kristofer Coma Scale Motor: Obeys Commands [place] Coma Scale Total: 15 Speech: Normal Motor strength normal: LUE, RUE, LLE, RLE Sensory: Normal - Psychological Associated symptoms: Normal affect, Normal mood - Skin Skin Temperature: Warm Skin Moisture: Dry Skin Color: Normal Irregularity with: Tenderness - Right foot packing removed irrigated with saline Band-Aid applied Course - Re-evaluation Re-evalutation: 04/18/18 21:31 Patient given instructions on soaking foot in Epsom salt and applying Band-Aid to foot. Patient use Tylenol Motrin for pain. Patient to follow-up with a primary doctor or stock preparation operator if she continues to have problems. - Vital Signs Vital signs: Temp Pulse Resp BP Pulse Ox 98.1 F 73 20 129/87 H 95 04/18/18 10:50 04/18/18 10:50 04/18/18 10:50 04/18/18 10:50 04/18/18 10:50 Discharge - Discharge Clinical Impression: Encounter for wound re-check Condition: Stable Disposition: HOME, SELF-CARE Additional Instructions: Epsom Salt Soaks Soak the wound area in a container of warm epsom salt water. If you can't get the wound area into a bucket or quintero, use a folded towel soaked in the epsom salt solution and apply to the area. Use clean hot tap water (about the temperature of a very warm bath), mixing in about one (1) teaspoon for every pint of water. Two gallon --> 16 teaspoons Epsom Salts One gallon --> 8 teaspoons Epsom Salts Two quarts --> 4 teaspoons Epsom Salts One quart --> 2 teaspoons Epsom Salts Soak the wound for about 20 minutes while gently moving it around in the water. Repeat this four (4) times a day. Acetaminophen Acetaminophen may be taken for pain relief or fever control. It's much safer than aspirin, offering a wider range of "safe" dosages. It is safe during . Some brand names are Tylenol, Panadol, Datril, Anacin 3, Tempra, and Liquiprin. Acetaminophen can be repeated every four hours. The following are maximum recommended dosages: WEIGHT Dose Drops Elixir Chewable( 80mg) (LBS.) drprs=droppers tsp=teaspoon 6 40 mg .4 ml (1/2) 6-11 80 mg .8 ml (full) 1/2 tsp 1 tab 12-16 120 mg 1 1/2 drprs 3/4 tsp 1 1/2 tabs 17-23 160 mg 2 drprs 1 tsp 2 tabs 24-30 240 mg 3 drprs 1 1/2 tsp 3 tabs 30-35 320 mg 2 tsp 4 tabs 36-41 360 mg 2 1/4 tsp 4 1 /2 tabs 42-47 400 mg 2 1/2 tsp 5 tabs 48-53 480 mg 3 tsp 6 tabs 54-59 520 mg 3 1/4 tsp 6 1 /2 tabs 60-64 560 mg 3 1/2 tsp 7 tabs 65-70 600 mg 3 3/4 tsp 7 1 /2 tabs 71-76 640 mg 4 tsp 8 tabs 77-82 720 mg 4 1/2 tsp 9 tabs 83-88 800 mg 5 tsp 10 tabs >89 pounds or adults 650 mg to 900 mg Acetaminophen can be repeated every four hours. Maximum daily dose not to exceed 4000 mg. These maximum recommended dosages are slightly higher than the dosages written on the product container, but these dosages are very safe and well below the toxic dosage for acetaminophen. Ibuprofen Ibuprofen is an excellent, safe drug for pain control. In addition, it has potent antiinflammatory effects which are beneficial, especially in the treatment of injuries, arthritis, or tendonitis. It's best to take ibuprofen with food. Persons with ulcer disease or allergy to aspirin should notify their physician of this before taking ibuprofen. Take the medication exactly as prescribed. Don't take additional doses unless instructed to do so by your doctor. If you develop wheezing, shortness of breath, hives, faintness, stomach pain, vomiting, or dark black stools, return for re-evaluation at once. FOLLOW-UP CARE: If you have been referred to a physician for follow-up care, call the physician s office for an appointment as you were instructed or within the next two days. If you experience worsening or a significant change in your symptoms, notify the physician immediately or return to the Emergency Department at any time for re-evaluation. Forms: Elevated Blood Pressure, Return to Work Referrals: ARTEMIO HELMS MD [Primary Care Provider] - Follow up as needed JOHN EVANS DPM [ACTIVE STAFF] - Follow up as needed
== END 2018-04-18 11:29 | disposition home or self-care (01) ==
LOC: ER 10:31
DX: Z48.00 Encounter for change or removal of nonsurgical wound dressing (principal); I10 Essential (primary) hypertension; J45.909 Unspecified asthma, uncomplicated
CPT/HCPCS: 99282

== ENCOUNTER 2018-08-17 16:14 | Emergency (ER) | payer MEDICAID ==
[2018-08-17 16:34] VITALS: BP 144/93
[2018-08-17] MEDS ORDERED: METHYLPREDNISOLONE INJ 125 MG/2 ML SDV IM ONE (17:30)
--- NOTE | 2018-08-17 17:47 | RADIOLOGY REPORT (SQ) ---
EXAM DESCRIPTION: CHEST 2 VIEWS COMPLETED DATE/TIME: 08/17/2018 5:28 pm REASON FOR STUDY: cough COMPARISON: 02/13/18 TECHNIQUE: Frontal and lateral radiographic views of the chest acquired. NUMBER OF VIEWS: Two view. LIMITATIONS: None. FINDINGS: LUNGS AND PLEURA: No pneumothorax. No consolidation or pleural effusion. MEDIASTINUM AND HILAR STRUCTURES: Stable. HEART AND VASCULAR STRUCTURES: Stable. BONES: No acute findings. HARDWARE: None in the chest. OTHER: No other significant finding. IMPRESSION: NO ACUTE FINDINGS. TECHNICAL DOCUMENTATION: JOB ID: [id number] 2010 [employer]- All Rights Reserved Reading location - IP/workstation name: [facility]
--- NOTE | 2018-08-17 17:47 | ER Document Report ---
HPI - HPI Pain Level: 3 Notes: Patient is a 48-year-old female with a history of asthma who presents to the ED complaining of a dry nonproductive cough, occasional wheezing over the last week. She has had some nasal congestion discharge as well. Denies any drug allergies. Patient states that she has been using her inhaler without any difficulties. She is eating and drinking without difficulties. She is urinating normally and having normal bowel movements. No other concerns or complaints. Denies any headache, fever, neck pain, sore throat, chest pain, palpitations, syncope, shortness of breath, dyspnea, abdominal pain, nausea/ vomiting/diarrhea, urinary retention, dysuria, hematuria, or rash. - ROS Systems Reviewed and Negative: Yes All other systems reviewed and negative - CONSTITUTIONAL Constitutional: DENIES: Fever, Chills - EENT EENT: DENIES: Sore Throat, Ear Pain, Eye problems - NEURO Neurology: DENIES: Headache, Weakness, Vision blurred, Dizzinesss / Vertigo - CARDIOVASCULAR Cardiovascular: DENIES: Chest pain - RESPIRATORY Respiratory: REPORTS: Coughing. DENIES: Trouble Breathing - GASTROINTESTINAL Gastrointestinal: DENIES: Abdominal Pain, Black / Bloody Stools - URINARY Urinary: DENIES: Dysuria, Urgency, Frequency - REPRODUCTIVE Reproductive: DENIES: : - MUSCULOSKELETAL Musculoskeletal: DENIES: Extremity pain Past Medical History - Social History Smoking Status: Never Smoker Chew tobacco use (# tins/day): No Frequency of alcohol use: None Drug Abuse: None Family History: Reviewed & Not Pertinent Patient has suicidal ideation: No Patient has homicidal ideation: No - Past Medical History Cardiac Medical History: Reports: Hx Hypertension Pulmonary Medical History: Reports: Hx Asthma Neurological Medical History: Reports: Hx Migraine Renal/ Medical History: Denies: Hx Peritoneal Dialysis Musculoskeletal Medical History: Reports Hx Gout Psychiatric Medical History: Reports: Hx Depression - Immunizations Immunizations up to date: Yes Hx Diphtheria, Pertussis, Tetanus Vaccination: Yes - 2004 [employer] Provider Document - CONSTITUTIONAL Agree With Documented VS: Yes Notes: PHYSICAL EXAMINATION: GENERAL: Well-appearing, well-nourished and in no acute distress. A&Ox4. Answers questions appropriately. Moves comfortably w/o notable distress HEAD: Atraumatic, normocephalic. EYES: Pupils equal round and reactive to light, extraocular movements intact, sclera anicteric, conjunctiva are normal. ENT: EAC clear b/l. TM's intact b/l without erythema, fluid, or perforation. Nares patent and with clear discharge. oropharynx no erythema without exudates. No tonsilar hypertrophy without erythema or exudate. No palatine shift. Uvula midline. No tongue protrusion. No drooling, hoarseness, or airway compromise. Moist mucous membranes. No sinus tenderness. NECK: Normal range of motion, supple without lymphadenopathy. No rigidity/ meningismus. LUNGS: Breath sounds clear to auscultation bilaterally and equal. No wheezes rales or rhonchi. No retractions HEART: Regular rate and rhythm without murmurs, rubs, gallops. ABDOMEN: Soft, nontender, nondistended abdomen. No guarding, no rebound. No masses appreciated. Normal bowel sounds present. No CVA tenderness bilaterally. No hepatosplenomegaly. NEUROLOGICAL: Normal speech, normal gait. Normal sensory, motor exams PSYCH: Normal mood, normal affect. SKIN: Warm, Dry, normal turgor, no rashes or lesions noted. - INFECTION CONTROL TRAVEL OUTSIDE OF THE [place] IN LAST 30 DAYS: No Course - Re-evaluation Re-evalutation: 08/17/18 17:55 Patient is an afebrile, well-hydrated, 48-year-old female who presents to the ED with acute URI, suspect viral. Vitals are stable. PE is otherwise unremarkable. No labs or imaging warranted at this time based on H&P. Patient has no significant cardiopulmonary or immunocompromised medical conditions aside from asthma that seems to be well controlled. Patient's lungs are clear to auscultation bilaterally without tachycardia, hypoxia, or tachypnea. Patient is tolerating p.o. without any difficulties. Low suspicion for any meningitis, sepsis, peritonsillar/pharyngeal abscess, respiratory compromise, severe dehydration, or other emergent systemic condition at this time. Patient is aware this condition can change from initial presentation and she needs to monitor symptoms closely. I will send her home with a prescription for prednisone taper. Solu-Medrol given IM today. Conservative measures otherwise for symptoms. Recheck with your PCM in 3-5 days. Return to the ED with any worsening/concerning symptoms otherwise as reviewed in discharge. Patient is in agreement. - Vital Signs Vital signs: Temp Pulse Resp BP Pulse Ox 98.1 F 79 18 144/93 H 100 08/17/18 16:33 08/17/18 16:33 08/17/18 16:33 08/17/18 16:33 08/17/18 16:33 Discharge - Discharge Clinical Impression: Acute URI Condition: Stable Disposition: HOME, SELF-CARE Instructions: Upper Respiratory Illness ([facility]) Additional Instructions: Maintain adequate fluid intake Take meds as directed tylenol/ibuprofen as needed over the counter cold medication as needed for symptoms Humidified air may help Wash your hands regularly Wear a mask when coughing F/u: with your PCM in 3-5 days for a recheck Return to the ED with any fever, worsening pain, chest pain, palpitations, syncope, worsening WHITTAKER, neck pain/stiffness, shortness of breath, wheezing, drooling, trouble swallowing/breathing, abdominal pain, n/v/d, rash, or worsening/concerning symptoms otherwise. Prescriptions: Prednisone 20 mg PO ASDIR #18 tablet Referrals: ARTEMIO HELMS MD [ACTIVE STAFF] - Follow up in 3-5 days
== END 2018-08-17 18:41 | disposition home or self-care (01) ==
LOC: ER 16:14
DX: J06.9 Acute upper respiratory infection, unspecified (principal); R05 Cough; R09.81 Nasal congestion; J45.909 Unspecified asthma, uncomplicated; I10 Essential (primary) hypertension; J34.89 Other specified disorders of nose and nasal sinuses
CPT/HCPCS: 99283; 96372; 71046; J2930

== ENCOUNTER 2019-01-31 08:43 | Emergency (ER) | payer MEDICAID ==
[2019-01-31] MEDS ORDERED: IPRATROPIUM/ALBUTEROL 0.5-2.5 MG/3 ML AMPUL NEB ONE (09:19)
--- NOTE | 2019-01-31 09:35 | ER Document Report ---
HPI - HPI Time Seen by Provider: 01/31/19 09:13 Pain Level: 3 Notes: Patient is a 48-year-old female with past medical history of asthma who presents to the emergency department with complaints of wheezing and cough that has been ongoing for 2 weeks. Patient reports she has seen her primary care provider who prescribed her steroids as well as albuterol with bromide. She states that her symptoms are not improving. Patient denies any fevers. She does report her c ough is productive with clearish white sputum. - RESPIRATORY Respiratory: REPORTS: Coughing - REPRODUCTIVE Reproductive: DENIES: : Past Medical History - General Information source: Patient - Social History Smoking Status: Never Smoker Family History: Reviewed & Not Pertinent Patient has suicidal ideation: No Patient has homicidal ideation: No - Past Medical History Cardiac Medical History: Reports: Hx Hypertension Pulmonary Medical History: Reports: Hx Asthma Neurological Medical History: Reports: Hx Migraine Renal/ Medical History: Denies: Hx Peritoneal Dialysis Musculoskeletal Medical History: Reports Hx Gout Psychiatric Medical History: Reports: Hx Depression - Immunizations Immunizations up to date: Yes Hx Diphtheria, Pertussis, Tetanus Vaccination: Yes - 2004 [facility] Provider Document - CONSTITUTIONAL Notes: PHYSICAL EXAMINATION: GENERAL: Well-appearing, well-nourished and in no acute distress. HEAD: Atraumatic, normocephalic. EYES: Pupils equal round extraocular movements intact, conjunctiva are normal. ENT: Nares patent, bilateral TMs unremarkable. Throat mildly erythematous, no tonsillar swelling or exudates noted. NECK: Normal range of motion LUNGS: No respiratory distress, mild expiratory wheezes noted bilaterally. Musculoskeletal: Normal range of motion NEUROLOGICAL: Normal speech, normal gait. PSYCH: Normal mood, normal affect. SKIN: Warm, Dry, normal turgor, no rashes or lesions noted. - INFECTION CONTROL TRAVEL OUTSIDE OF THE [place] IN LAST 30 DAYS: No Course - Re-evaluation Re-evalutation: 01/31/19 10:41 Chest x-ray is negative for any acute findings. Patient will be discharged home with prescription for DuoNeb she states that the medication she is currently taking is not helping. Patient encouraged to continue taking prednisone as she is already been prescribed by her PCP. - Vital Signs Vital signs: Temp Pulse Resp BP Pulse Ox 97.7 F 67 18 165/93 H 99 01/31/19 09:00 01/31/19 09:00 01/31/19 09:00 01/31/19 09:00 01/31/19 09:00 Discharge - Discharge Clinical Impression: Viral upper respiratory illness, Wheezing Condition: Stable Disposition: HOME, SELF-CARE Additional Instructions: Your x-ray was negative and does not show any sign of pneumonia. Please continue to take the course of prednisone as prescribed by your primary care provider. I have given you a prescription for DuoNeb which is albuterol mixed with Atrovent for your nebulizer machine. You may use this in place of the albuterol with bromide per your request. Prescriptions: Ipratropium/Albuterol Sulfate [Duoneb 3 ml Ampul] 3 ml NEB [id number] PRN #[id number] vial.neb PRN Reason: Forms: Return to Work Referrals: BEBE ELIZABETH MD [NO LOCAL MD] - Follow up as needed
--- NOTE | 2019-01-31 10:33 | RADIOLOGY REPORT (SQ) ---
EXAM DESCRIPTION: CHEST 2 VIEWS COMPLETED DATE/TIME: 01/31/2019 9:46 am REASON FOR STUDY: cough x2 weeks COMPARISON: 08/17/2018 EXAM PARAMETERS: NUMBER OF VIEWS: two views TECHNIQUE: Digital Frontal and Lateral radiographic views of the chest acquired. RADIATION DOSE: NA LIMITATIONS: none FINDINGS: LUNGS AND PLEURA: No opacities, masses or pneumothorax. No pleural effusion. MEDIASTINUM AND HILAR STRUCTURES: No masses or contour abnormalities. HEART AND VASCULAR STRUCTURES: Heart normal size. No evidence for failure. BONES: No acute findings. HARDWARE: None in the chest. OTHER: No other significant finding. IMPRESSION: No acute abnormality of the lungs. No focal airspace opacity. TECHNICAL DOCUMENTATION: JOB ID: [id number] [employer]- All Rights Reserved Reading location - IP/workstation name: [email or web address]
[2019-01-31 10:51] VITALS: BP 147/84
== END 2019-01-31 10:52 | disposition home or self-care (01) ==
LOC: ER 08:43
DX: J06.9 Acute upper respiratory infection, unspecified (principal); B97.89 Other viral agents as the cause of diseases classified elsewhere; J45.909 Unspecified asthma, uncomplicated; R05 Cough; I10 Essential (primary) hypertension
CPT/HCPCS: 94640; 99283; 71046; J7620

== ENCOUNTER 2019-10-30 20:06 | Emergency (ER) | payer MEDICAID ==
--- NOTE | 2019-10-30 21:34 | ER Document Report ---
ED Medical Screen (RME) - General Chief Complaint: Chest Pain > 30 Stated Complaint: CHEST PAIN,LEFT ARM TINGLING Time Seen by Provider: 10/30/19 21:17 Primary Care Provider: CHAITANYA KU MD [Primary Care Provider] - Follow up as needed Notes: Patient is a 49-year-old female who presents the emergency department with a chief complaint of chest pain. Patient states that her chest pain started in July. She states that it comes and goes. She also states that she has some numbness and tingling down her left arm that comes and goes. This morning she felt like the numbness and tingling was worse and it felt like she had a hole in her left hand. Patient does have a history of asthma she is currently on Advair. Exam: S1, S2. Lung sounds clear bilaterally. I have greeted and performed a rapid initial assessment of this patient. A comprehensive ED assessment and evaluation of the patient, analysis of test results and completion of medical decision making process will be conducted by an additional ED providers. TRAVEL OUTSIDE OF THE [place] IN LAST 30 DAYS: No - Related Data Allergies/Adverse Reactions: No Known Allergies Allergy (Verified 01/31/19 08:46) Past Medical History - Past Medical History Cardiac Medical History: Reports: Hx Hypertension Pulmonary Medical History: Reports: Hx Asthma Neurological Medical History: Reports: Hx Migraine Renal/ Medical History: Denies: Hx Peritoneal Dialysis Musculoskeltal Medical History: Reports Hx Gout Psychiatric Medical History: Reports: Hx Depression - Immunizations Immunizations up to date: Yes Hx Diphtheria, Pertussis, Tetanus Vaccination: Yes - 2003 Physical Exam - Vital signs Vitals: Temp Pulse Resp BP Pulse Ox 97.9 F 87 20 143/90 H 98 10/30/19 20:41 10/30/19 20:41 10/30/19 20:41 10/30/19 20:41 10/30/19 20:41 Course - Vital Signs Vital signs: Temp Pulse Resp BP Pulse Ox 97.9 F 87 20 143/90 H 98 10/30/19 20:41 10/30/19 20:41 10/30/19 20:41 10/30/19 20:41 10/30/19 20:41 Doctor's Discharge - Discharge Referrals: CHAITANYA KU MD [Primary Care Provider] - Follow up as needed
--- NOTE | 2019-10-30 22:25 | RADIOLOGY REPORT (SQ) ---
EXAM DESCRIPTION: XR CHEST 2 VIEWS COMPLETED DATE/TME: 10/30/2019 21:32 CLINICAL HISTORY: 49 years, Female, chest pain COMPARISON: 01/31/2019 chest NUMBER OF VIEWS: 2 TECHNIQUE: 2 views of the chest LIMITATIONS: None. FINDINGS: Heart size is stable. Mild elevation of the left hemidiaphragm. No pneumothorax. Lungs are clear IMPRESSION: No acute cardiopulmonary process copyright 2010 [employer]- All Rights Reserved
[2019-10-30 22:27] LABS: ABSOLUTE BASOPHILS # (AUTO) 0.1 10^3/uL (0.0-0.2); ABSOLUTE EOSINOPHILS # (AUTO) 0.5 10^3/uL (0.0-0.6); ABSOLUTE LYMPHOCYTES (AUTO) 2.2 10^3/uL (0.5-4.7); ABSOLUTE MONOCYTES (AUTO) 0.6 10^3/uL (0.1-1.4); ABSOLUTE NEUT (AUTO) 5.9 10^3/uL (1.7-8.2); BASOPHILS % (AUTO) 1.3 % (0-2); EOSINOPHILS % (AUTO) 5.5 % (0-6); HEMATOCRIT 40.2 % (36.0-47.0); HEMOGLOBIN 13.6 g/dL (12.0-15.5); LYMPHOCYTES % (AUTO) 23.7 % (13-45); MEAN CORPUSCULAR HEMOGLOBIN 28.5 pg (27.0-33.4); MEAN CORPUSCULAR HGB CONC 33.8 g/dL (32.0-36.0); MEAN CORPUSCULAR VOLUME 84 fl (80-97); MONOCYTES % (AUTO) 6.2 % (3-13); PLATELET COUNT 346 10^3/uL (150-450); RED BLOOD COUNT 4.77 10^6/uL (3.72-5.28); RED CELL DISTRIBUTION WIDTH 13.6 % (11.5-14.0); SEGMENTED NEUTROPHILS % (AUTO) 63.3 % (42-78); TOTAL CELLS COUNTED % (AUTO) 100 %; WHITE BLOOD COUNT 9.3 10^3/uL (4.0-10.5)
[2019-10-30 22:48] LABS: ALBUMIN 4.4 g/dL (3.5-5.0); ALKALINE PHOSPHATASE 82 U/L (38-126); ANION GAP 11 (5-19); ASPARTATE AMINO TRANSFERASE 26 U/L (14-36); BILIRUBIN,DIRECT 0.1 mg/dL (0.0-0.4); BILIRUBIN,TOTAL 0.3 mg/dL (0.2-1.3); BLOOD UREA NITROGEN 21 mg/dL (7-20); CALCIUM 10.6 mg/dL (8.4-10.2); CARBON DIOXIDE 32 mmol/L (22-30); CHLORIDE 98 mmol/L (98-107); CREATINE KINASE 92 U/L (30-135); GLUCOSE 94 mg/dL (75-110); POTASSIUM 3.6 mmol/L (3.6-5.0); TOTAL PROTEIN 8.3 g/dL (6.3-8.2)
[2019-10-30] MEDS ORDERED: NORMAL SALINE 1000 ML 1,000 ML IV ONE (23:33)
[2019-10-30] MEDS ORDERED: IPRATROPIUM/ALBUTEROL 0.5-2.5 MG/3 ML AMPUL NEB ONE (23:33)
[2019-10-30] MEDS ORDERED: METHYLPREDNISOLONE INJ 125 MG/2 ML SDV IV ONE (23:33)
--- NOTE | 2019-10-30 23:40 | ER Document Report ---
ED General - General Chief Complaint: Chest Pain Stated Complaint: CHEST PAIN,LEFT ARM TINGLING Time Seen by Provider: 10/30/19 21:17 Primary Care Provider: ELANA AVILA PA-C [Primary Care Provider] - Follow up in 3-5 days Notes: Patient is a 49-year-old female that comes to the emergency department for chief complaint of congestion, wheezing, cough, tightness and pain across her chest, and some tingling in her left hand. Symptoms started this morning about 20 hours ago. 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 She denies fever. She does have a history of asthma and states she uses her Advair but is out of her rescue inhaler. She denies smoking. She denies any other complaints. TRAVEL OUTSIDE OF THE [place] IN LAST 30 DAYS: No - Related Data Allergies/Adverse Reactions: No Known Allergies Allergy (Verified 01/31/19 08:46) Past Medical History - General Information source: Patient - Social History Smoking Status: Never Smoker Frequency of alcohol use: None Drug Abuse: None Lives with: Family Family History: Reviewed & Not Pertinent Patient has suicidal ideation: No Patient has homicidal ideation: No - Past Medical History Cardiac Medical History: Reports: Hx Hypertension Pulmonary Medical History: Reports: Hx Asthma Neurological Medical History: Reports: Hx Migraine Renal/ Medical History: Denies: Hx Peritoneal Dialysis Musculoskeletal Medical History: Reports Hx Gout Psychiatric Medical History: Reports: Hx Depression - Immunizations Immunizations up to date: Yes Hx Diphtheria, Pertussis, Tetanus Vaccination: Yes - 2003 Review of Systems - Review of Systems Constitutional: See HPI EENT: See HPI Cardiovascular: No symptoms reported Respiratory: See HPI Gastrointestinal: No symptoms reported Genitourinary: No symptoms reported Female Genitourinary: No symptoms reported Musculoskeletal: See HPI Skin: No symptoms reported Hematologic/Lymphatic: No symptoms reported Neurological/Psychological: No symptoms reported Physical Exam - Vital signs Vitals: Temp Pulse Resp BP Pulse Ox 97.9 F 87 20 143/90 H 98 10/30/19 20:41 10/30/19 20:41 10/30/19 20:41 10/30/19 20:41 10/30/19 20:41 - Notes Notes: GENERAL: Alert, interacts well. No acute distress. HEAD: Normocephalic, atraumatic. EYES: Pupils equal, round, and reactive to light. Extraocular movements intact. ENT: Oral mucosa moist, tongue midline. Oropharynx unremarkable. Airway patent. Mild sinus congestion, nontender sinuses, no nasal septal hematoma, TM's intact. NECK: Full range of motion. Supple. Trachea midline. LUNGS: Occasional congested cough, a few scattered expiratory wheezes, good lung sounds. No tachypnea or signs of distress. HEART: Regular rate and rhythm. No murmur ABDOMEN: Soft, non-tender. Non-distended. EXTREMITIES: Moves all 4 extremities spontaneously. No edema, normal radial and dorsalis pedis pulses bilaterally. No cyanosis. BACK: no cervical, thoracic, lumbar midline tenderness. No saddle anesthesia, normal distal neurovascular exam. Moves all extremities in full range of motion. NEUROLOGICAL: Alert and oriented x3. Normal speech. Cranial nerves II through XII grossly intact. PSYCH: Normal affect, normal mood. SKIN: Warm, dry, normal turgor. No rashes or lesions noted. Course - Re-evaluation Re-evalutation: Patient with occasional cough and minimal expiratory wheezes, no respiratory distress, smiling, talkative, well-appearing. Appears to be very mild asthma exacerbation with possible developing upper respiratory infection with congestion and cough. Left arm is unremarkable on exam with normal sensation and patient reports symptoms and there are chronic. EKG nonischemic, chest x- ray unremarkable, CBC unremarkable, chemistry with mildly elevated BUN and calcium. Given IV fluids, DuoNeb, steroids. Troponin negative. - Vital Signs Vital signs: Temp Pulse Resp BP Pulse Ox 98.0 F 75 15 164/96 H 96 10/31/19 01:01 10/31/19 01:01 10/31/19 01:01 10/31/19 01:01 10/31/19 01:01 - Laboratory Result Diagrams: 10/30/19 21:55 10/30/19 21:55 Laboratory results interpreted by me: 10/30/19 21:55 Carbon Dioxide 32 H BUN 21 H Calcium 10.6 H Total Protein 8.3 H - EKG Interpretation by Me Additional EKG results interpreted by me: EKG shows sinus rhythm at a rate of 86, no T wave inversions or ST segment changes in consecutive leads. Normal axis. QTC of 440. Discharge - Discharge Clinical Impression: Wheezing, Cough, Chest discomfort Asthma exacerbation Qualifiers: Asthma severity: mild Asthma persistence: intermittent Qualified Code(s): J 45.21 - Mild intermittent asthma with (acute) exacerbation Upper respiratory infection Qualifiers: URI type: unspecified URI Qualified Code(s): J06.9 - Acute upper respiratory infection, unspecified Condition: Stable Disposition: HOME, SELF-CARE Additional Instructions: Your work-up shows some dehydration and your evaluation is consistent with a developing upper respiratory infection and asthma exacerbation. This is most likely viral by your work-up and exam and this should resolve with time. Take prednisone as prescribed, use the albuterol and your Advair as needed, take [id number] decongestants and antihistamines. Stay hydrated. Follow-up with primary care. Return if you worsen including difficulty breathing, spiking fever, or any other concerning or worsening symptoms. Prescriptions: Prednisone [Deltasone 20 mg Tablet] 3 tab PO DAILY 5 Days tablet Albuterol Sulfate [Proair HFA Inhalation Aerosol 8.5 gm MDI] 2 puff IH Q4H PRN #1 mdi PRN Reason: Forms: Return to Work Referrals: ELANA AVILA PA-C [Primary Care Provider] - Follow up in 3-5 days
[2019-10-31 01:01] VITALS: BP 164/96
--- NOTE | 2019-10-31 16:26 | EKG REPORT ---
SEVERITY:- ABNORMAL ECG - SINUS RHYTHM LVH WITH SECONDARY REPOLARIZATION ABNORMALITY : Confirmed by: Cecelia Brown MD 31-Oct-2019 16:25:31
== END 2019-10-31 01:01 | disposition home or self-care (01) ==
LOC: ER 20:06
DX: J45.21 Mild intermittent asthma with (acute) exacerbation (principal); Z79.51 Long term (current) use of inhaled steroids; J06.9 Acute upper respiratory infection, unspecified; R07.89 Other chest pain; R20.2 Paresthesia of skin; R05 Cough; R09.81 Nasal congestion; I10 Essential (primary) hypertension
CPT/HCPCS: 93005; 94640; 99285; 96361; 96374; 36415; 82550; 85025; 80053; 84484; 71046; 93010; J2930; J7030; J7620

== ENCOUNTER 2020-11-01 05:00 | Emergency (ER) | payer OTHER, MEDICAID ==
[2020-11-01 06:04] LABS: ABSOLUTE BASOPHILS # (AUTO) 0.1 10^3/uL (0.0-0.2); ABSOLUTE EOSINOPHILS # (AUTO) 0.7 10^3/uL (0.0-0.6); ABSOLUTE LYMPHOCYTES (AUTO) 1.9 10^3/uL (0.5-4.7); ABSOLUTE MONOCYTES (AUTO) 0.6 10^3/uL (0.1-1.4); ABSOLUTE NEUT (AUTO) 4.6 10^3/uL (1.7-8.2); BASOPHILS % (AUTO) 1.3 % (0-2); EOSINOPHILS % (AUTO) 8.7 % (0-6); HEMATOCRIT 39.8 % (36.0-47.0); HEMOGLOBIN 13.6 g/dL (12.0-15.5); LYMPHOCYTES % (AUTO) 24.2 % (13-45); MEAN CORPUSCULAR HEMOGLOBIN 28.7 pg (27.0-33.4); MEAN CORPUSCULAR HGB CONC 34.1 g/dL (32.0-36.0); MEAN CORPUSCULAR VOLUME 84 fl (80-97); MONOCYTES % (AUTO) 7.5 % (3-13); PLATELET COUNT 304 10^3/uL (150-450); RED BLOOD COUNT 4.73 10^6/uL (3.72-5.28); RED CELL DISTRIBUTION WIDTH 14.1 % (11.5-14.0); SEGMENTED NEUTROPHILS % (AUTO) 58.3 % (42-78); TOTAL CELLS COUNTED % (AUTO) 100 %; WHITE BLOOD COUNT 7.9 10^3/uL (4.0-10.5)
[2020-11-01 06:27] LABS: ALBUMIN 4.3 g/dL (3.5-5.0); ALKALINE PHOSPHATASE 68 U/L (38-126); ASPARTATE AMINO TRANSFERASE 24 U/L (14-36); BILIRUBIN,DIRECT 0.2 mg/dL (0.0-0.4); BILIRUBIN,TOTAL 0.3 mg/dL (0.2-1.3); BLOOD UREA NITROGEN 15 mg/dL (7-20); CALCIUM 9.8 mg/dL (8.4-10.2); CARBON DIOXIDE 33 mmol/L (22-30); CREATINE KINASE 100 U/L (30-135); GLUCOSE 88 mg/dL (75-110); POTASSIUM 3.8 mmol/L (3.6-5.0); TOTAL PROTEIN 7.9 g/dL (6.3-8.2)
[2020-11-01 06:32] LABS: ANION GAP 3 (5-19); CHLORIDE 103 mmol/L (98-107)
[2020-11-01 06:38] LABS: CREATINE KINASE MB 2.05 ng/mL (<4.55)
[2020-11-01 06:41] LABS: TROPONIN I < 0.012 ng/mL
--- NOTE | 2020-11-01 06:59 | RADIOLOGY REPORT (SQ) ---
EXAM DESCRIPTION: X-ray two view chest. CLINICAL HISTORY: 50 years Female, chest pain COMPARISON: 10/30/2019 and 01/31/2019 TECHNIQUE: PA and Lateral views of the chest performed on 11/01/2020 at 6:10 AM FINDINGS: The lungs are well expanded and are clear. The costophrenic sulci are clear. There is no evidence of a pneumothorax. The cardiac silhouette is normal in size. The mediastinal contours are normal. No acute osseous abnormalities are identified. No focal soft tissue abnormalities are identified. IMPRESSION: No evidence of acute intrathoracic disease.
--- NOTE | 2020-11-01 07:25 | ER Document Report ---
ED General - General Chief Complaint: Chest Pain Stated Complaint: CHEST PAIN Time Seen by Provider: 11/01/20 07:12 Primary Care Provider: ELANA AVILA PA-C [Primary Care Provider] - Follow up as needed TRAVEL OUTSIDE OF THE [place] IN LAST 30 DAYS: No - HPI Notes: Chief complaint: Chest pain and asthma History of present illness: 50-year-old female non-smoker with no known history of CAD but longstanding history of asthma and mild hypertension comes in with 2- week history of intermittent sharp pain left anterior chest area nonexertional occasionally radiating to her arm. Aggravated by movement. Pain lasts usually less than 2 minutes at a time. No nausea, vomiting or diaphoresis. Family history negative for CAD. Patient is not diabetic and has no known history of hyperlipidemia. She denies any history of thromboembolic disease. Patient is using a metered-dose inhaler and is on antihypertensive medication. No other long-term therapy. - Related Data Allergies/Adverse Reactions: No Known Allergies Allergy (Verified 01/31/19 08:46) Home Medications: Advair. Albuterol Past Medical History - General Information source: [facility], [facility] - Social History Smoking Status: Never Smoker Chew tobacco use (# tins/day): No Frequency of alcohol use: None Drug Abuse: None Family History: Reviewed & Not Pertinent - Past Medical History Cardiac Medical History: Reports: Hx Hypertension Pulmonary Medical History: Reports: Hx Asthma Neurological Medical History: Reports: Hx Migraine Renal/ Medical History: Denies: Hx Peritoneal Dialysis Musculoskeletal Medical History: Reports Hx Gout Psychiatric Medical History: Reports: Hx Depression - Immunizations Immunizations up to date: Yes Hx Diphtheria, Pertussis, Tetanus Vaccination: Yes - 2003 Review of Systems - Review of Systems Notes: Constitutional: Negative for fever. HENT: Negative for sore throat. Eyes: Negative for visual changes. Cardiovascular: As per HPI. Respiratory: As per HPI. Gastrointestinal: Negative for abdominal pain, vomiting or diarrhea. Genitourinary: Negative for dysuria. Musculoskeletal: Negative for back pain. Skin: Negative for rash. Neurological: Negative for headaches, weakness or numbness. 10 point ROS negative except as marked above and in HPI. Physical Exam - Vital signs Vitals: Temp Pulse Resp BP Pulse Ox 97.4 F 77 17 167/93 H 98 11/01/20 05:29 11/01/20 05:29 11/01/20 05:29 11/01/20 05:29 11/01/20 05:29 - Notes Notes: GENERAL: Well-developed well-nourished middle-age female appearing in no acute distress. SKIN: Good turgor no rashes. HEAD: Normocephalic atraumatic. EYES: PERRLA. EOMI. Conjunctivae and sclerae clear. EARS: CANALS AND TMS CLEAR. NOSE: CLEAR. MOUTH: Moist mucosa. Good dentition. No stridor or edema. No drooling. NECK: Supple. No masses or thyromegaly. No adenopathy. Carotids 2+ without bruits. No JVD. BACK: Symmetrical without tenderness. CHEST: Diffusely tender left anterior chest wall respirations unlabored. Breath sounds are symmetrical with a few faint end expiratory wheezes. HEART: Regular rhythm. No murmur gallop or rub. ABDOMEN: Soft nontender without masses, organomegaly or rebound. Bowel sounds normally active. No bruits. GENITALIA: Deferred. EXTREMITIES: No edema. No calf tenderness. Cap refill less than 1.5 seconds. Dorsalis pedis and posterior tibial pulses 3+ and symmetrical. NEUROLOGICAL: GCS 15. Alert and oriented x3. Normal gait. Fluent speech. Cr anial nerves II through XII intact. Sensorimotor and cerebellar normal. Normal tone. PSYCHIATRIC: Appropriate affect. Course - Re-evaluation Re-evalutation: 11/01/20 07:26 Unremarkable EKG. Normal chest x-ray. Low heart score. Pain-free here. 2 - troponins 3 hours apart. Low risk of CAD. Present symptoms are more likely r elated to her asthma and an element of chest wall pain. Stable for outpatient follow-up with PMD. I will restart her on a brief course of prednisone and put her on an NSAID orally. Findings, clinical impression and plan of treatment have been discussed with patient/family. Understanding of current findings and recommendations has been acknowledged by them and there is agreement regarding disposition and follow-up. - Vital Signs Vital signs: Temp Pulse Resp BP Pulse Ox 97.4 F 77 18 167/93 H 99 11/01/20 05:29 11/01/20 05:29 11/01/20 06:24 11/01/20 05:29 11/01/20 06:24 - Laboratory Results Result Diagrams: 11/01/20 05:22 11/01/20 05:22 Laboratory Results Interpreted: 11/01/20 11/01/20 05:22 05:22 RDW 14.1 H Eos % (Auto) 8.7 H Absolute Eos (auto) 0.7 H Carbon Dioxide 33 H Anion Gap 3 L Critical Laboratory Results Reviewed: No Critical Results - Radiology Results Radiology Results Interpreted: 11/01/20 07:24 Chest X-Ray 11/01/20 00:00 IMPRESSION: No evidence of acute intrathoracic disease. Critical Radiology Results Reviewed: No Critical Results - EKG Interpretation by Me Additional EKG results interpreted by me: 11/01/20 07:25 Twelve-lead EKG reviewed by me contemporaneously: 0506 hrs. Indication for study: Chest pain Rhythm: Normal sinus Rate: 71 Intervals: Normal intervals QRS axis: -[address]/T wave changes: No acute changes Comparison with prior tracing: No prior tracings Interpretation: Normal sinus rhythm. LVH. Discharge - Discharge Clinical Impression: Chest pain, Asthma exacerbation Condition: Stable Disposition: HOME, SELF-CARE Instructions: Chest Pain of Unclear Cause ([facility]) Additional Instructions: Your risk of coronary disease appears to be extremely low. You should, however, follow-up with your primary care physician and discuss further evaluation with outpatient treadmill testing. In the meantime you are being given medication for your asthma and for muscular pain of your chest wall. See your doctor within the next 24 to 48 hours for follow-up. Return here as needed for new or worsening symptoms: Pain that is worsening or unimproved Uncontrolled vomiting High fever or shaking chills Overall worsening Prescriptions: Prednisone [Deltasone 20 mg Tablet] 2 tab PO DAILY 5 Days tablet Naproxen 500 mg PO BID PRN 7 Days #14 tablet PRN Reason: Referrals: ELANA AVILA PA-C [Primary Care Provider] - Follow up as needed
--- NOTE | 2020-11-01 09:29 | EKG REPORT ---
SEVERITY:- ABNORMAL ECG - SINUS RHYTHM LVH WITH SECONDARY REPOLARIZATION ABNORMALITY : Confirmed by: Varun Maddox MD 01-Nov-2020 09:29:17
[2020-11-01 10:59] VITALS: BP 155/94
== END 2020-11-01 10:59 | disposition home or self-care (01) ==
LOC: ER 05:00
DX: R07.9 Chest pain, unspecified (principal); J45.901 Unspecified asthma with (acute) exacerbation; I11.9 Hypertensive heart disease without heart failure; Z79.899 Other long term (current) drug therapy; Z79.51 Long term (current) use of inhaled steroids
CPT/HCPCS: 36415; 71046; 80053; 82550; 82553; 84484; 85025; 93005; 93010; 99285

== ENCOUNTER 2020-11-25 18:15 | Emergency (ER) | payer OTHER, MEDICAID ==
[2020-11-25] MEDS ORDERED: LIDOCAINE 1% INJ-PF (10 MG/ML) 30 ML SDV INJ ONE (19:38)
--- NOTE | 2020-11-25 19:44 | ER Document Report ---
ED Hand/Wrist Injury - General Chief Complaint: Abrasion(s) Stated Complaint: LACERATION Time Seen by Provider: 11/25/20 19:33 Primary Care Provider: ELANA AVILA PA-C [Primary Care Provider] - Follow up as needed Mode of Arrival: Ambulatory Information source: Patient TRAVEL OUTSIDE OF THE [place] IN LAST 30 DAYS: No - HPI Injury to: Hand Notes: Patient here with complaints of injury to her right hand. Patient states that her toilet lid was broken. She was attempting to put it back in place when she accidentally cut her right index MCP joint on the sharp edge of the porcelain. She denies any numbness, tingling, weakness. Bleeding is controlled. She complains of mild pain. No chest pain or shortness of breath. No abdominal pain. No redness or drainage. Tetanus is up-to-date. This occurred just a few hours prior to her arrival. Patient denies any nausea, vomiting, diarrhea. No other injury, no other complaints. - Related Data Allergies/Adverse Reactions: No Known Allergies Allergy (Verified 01/31/19 08:46) Home Medications: advair inhaler Past Medical History - Social History Smoking Status: Never Smoker Chew tobacco use (# tins/day): No Frequency of alcohol use: None Drug Abuse: None Family History: Reviewed & Not Pertinent - Past Medical History Cardiac Medical History: Reports: Hx Hypertension Pulmonary Medical History: Reports: Hx Asthma Neurological Medical History: Reports: Hx Migraine Renal/ Medical History: Denies: Hx Peritoneal Dialysis Musculoskeletal Medical History: Reports Hx Gout Psychiatric Medical History: Reports: Hx Depression - Immunizations Immunizations up to date: Yes Hx Diphtheria, Pertussis, Tetanus Vaccination: Yes - 2003 Review of Systems - Review of Systems -: Yes All other systems reviewed and negative Physical Exam - Vital signs Vitals: Temp Pulse Resp BP Pulse Ox 98.8 F 80 16 138/83 H 100 11/25/20 18:45 11/25/20 18:45 11/25/20 18:45 11/25/20 18:45 11/25/20 18:45 - Notes Notes: GENERAL: alert, cooperative, nontoxic, no distress. HEAD: normocephalic, atraumatic EYES: conjunctiva pink without discharge, no external redness or swelling. EARS: no external swelling, no external redness NOSE: atraumatic, no external swelling MOUTH/THROAT: mucous membranes moist and pink NECK: soft, supple, full range of motion, no meningismus. CHEST: no distress, lungs clear and equal throughout. No wheezing, rales, rhonchi. CARDIAC: regular rate and rhythm, no murmur EXTREMITIES: full range of motion of all extremities. No redness, no swelling. 2 cm laceration over the right index finger MCP joint. There is no extensor tendon laceration. No foreign body. No surrounding redness. Bleeding is controlled. Normal cap refill and sensation distally. Full range of motion. NEURO: alert and oriented 3, no focal deficits, full range of motion of all extremities. PYSCH: appropriate mood, affect. Patient is cooperative. SKIN: pink, warm, dry, no rash. Course - Re-evaluation Re-evalutation: 11/25/20 20:00 Patient resting comfortably at this time. Laceration has been repaired. Patient will be discharged home. Patient is nontoxic-appearing with stable vitals. Here with complaints of right hand laceration. She accidentally cut her right index knuckle on the sharp edge of a porcelain toilet that was broken. She noted to have a laceration to this area. There is no tendon laceration or foreign body. The wound was cleaned, copiously irrigated and the laceration was repaired with sutures. A sterile dressing was applied. Patient tolerated this well. There is no signs of infection. She has full range of motion, normal neurovascular exam. Patient was instructed to clean wound twice a day with soap and water. Follow-up in 10 to 12 days for suture removal. Follow-up sooner for worsening pain, fever, redness, drainage, any further concerns. The patient's emergency department workup and current diagnosis were explained to the patient and or family. Follow-up instructions were provided. Medications if prescribed were discussed. Instructions for when to return to the emergency department including specific worrisome symptoms were discussed with the patient and/or family. - Vital Signs Vital signs: Temp Pulse Resp BP Pulse Ox 98.8 F 80 16 138/83 H 100 11/25/20 18:45 11/25/20 18:45 11/25/20 18:45 11/25/20 18:45 11/25/20 18:45 - Laboratory Results Critical Laboratory Results Reviewed: No Critical Results - Radiology Results Critical Radiology Results Reviewed: No Critical Results Procedures - Laceration/Wound Repair Right Hand 2nd digit Wound length (cm): 2 Wound's Depth, Shape: Superficial, Linear Laceration pre-procedure: Sterile PPE donned, Sterile drapes applied, Shur-Clens applied Anesthetic type: 1% Lidocaine Wound explored: Clean, No foreign body removed Irrigated w/ Saline (mLs): 50 Wound Repaired With: Sutures Suture Size/Type: 4:0, Ethilon Number of Sutures: 3 Layer Closure?: No Post-procedure wound care: Sterile dressing applied Post-procedure NV exam normal: Yes Complications: No Discharge - Discharge Clinical Impression: Laceration of right hand Qualifiers: Encounter type: initial encounter Foreign body presence: without foreign body Qualified Code(s): S61.411A - Laceration without foreign body of right hand, initial encounter Condition: Stable Disposition: HOME, SELF-CARE Instructions: Antibiotic Ointment Protection ([facility]), Laceration Care ([facility]), Soap Cleansing ([facility]) Additional Instructions: Clean wound twice a day with soap and water. Apply thin layer of antibiotic ointment. Cover the wound while you are at work. Follow-up with your primary care doctor in 10 to 12 days for suture removal. Follow-up sooner for worsening pain, fever, redness, drainage, numbness, tingling, weakness, any further concerns. Referrals: ELANA AVILA PA-C [Primary Care Provider] - Follow up as needed
[2020-11-25 20:34] VITALS: BP 134/74
== END 2020-11-25 20:30 | disposition home or self-care (01) ==
LOC: ER 18:15
DX: S61.411A Laceration without foreign body of right hand, initial encounter (principal); W26.9XXA Contact with unspecified sharp object(s), initial encounter; I10 Essential (primary) hypertension
CPT/HCPCS: 99282